=== PATIENT | male | born 1955 | race Caucasian/White ===

== ENCOUNTER 2016-07-31 15:58 | Inpatient (IN) | payer SELFPAY ==
--- NOTE | 2016-07-31 16:34 | EDPHY ---
H & P Stated Complaint: coughing up blood, blood streaks in stool, no diarrhea; 9kg loss in 3 wk Time Seen by Provider: 07/31/16 16:34 - Personal History Current Tetanus/Diphtheria Vaccine: Yes Current Tetanus Diphtheria and Acellular Pertussis (TDAP): Yes - Medical/Surgical History Hx Asthma: No Hx Chronic Respiratory Disease: No Hx Diabetes: No Hx Cardiac Disease: No Hx Renal Disease: No Hx Cirrhosis: No Hx Alcoholism: No Hx HIV/AIDS: No Hx Splenectomy or Spleen Trauma: No Other PMH: denies - Social History Smoking Status: Heavy smoker Constitutional: Initial Vital Signs Temperature (C) 37.5 C 07/31/16 16:01 Heart Rate 98 07/31/16 16:01 Respiratory Rate 16 07/31/16 16:01 Blood Pressure 126/91 H 07/31/16 16:01 O2 Sat (%) 95 07/31/16 16:01 O2 Delivery Mode Room Air Allergies/Adverse Reactions: gypsum Allergy (Uncoded 07/31/16 16:09) sheet rock dust Allergy (Uncoded 07/31/16 16:07) Home Medications: Medication Instructions Recorded EPIPEN 07/31/16 Medical Decision Making ED Course/Re-evaluation: CHIEF COMPLAINT: Hemoptysis, blood in stool HISTORY OF PRESENT ILLNESS: This patient is a 60 year old male who presents to the Emergency Department complaining of 5-6 episodes of acute hemoptysis today. He reports that he has been recovering from bronchitis and is on his second course of antibiotics and has been coughing frequently over the past week. He also complains of one episode of blood in his stool which he describes as a single streak of bright red blood. He has no additional complaints. Denies fever or chills or chest pain. No additional pertinent medical history. He has increased alcohol intake significantly since his at the end of June. REVIEW OF SYSTEMS: A 10 point review of systems was performed and is negative with the exception of the elements mentioned in the history of present illness. PHYSICAL EXAM: HR 98, BP 126/91, O2 Sat 95%, RR 16. Temp noted General Appearance: Alert, well hydrated, appropriate, and non-toxic appearing. Head: Atraumatic without scalp tenderness or obvious injury Eyes: Pupils equal, round, reactive to light and accommodation, EOMI, no trauma , no injection. Ears: Clear bilaterally, no perforation, normal landmarks Nose: Atraumatic, no rhinorrhea, clear. Throat: Pharyngeal erythema, no exudates, no lesions, normal tonsils, mucus membranes moist. Neck: Supple, 2+ carotid upstroke, nontender, no lymphadenopathy. Respiratory: No retractions, no distress, no wheezes, and no accessory muscle use. Lungs are clear to auscultation bilaterally. Cardiovascular: Regular rate and rhythm, no murmurs, rubs, or gallops. Bilateral carotid, radial, dorsalis pedis, and posterior tibial pulses intact. Good capillary refill all extremities. Gastrointestinal: Abdomen is soft, nontender, non-distended, no masses, no rebound, no guarding, no peritoneal signs. Musculoskeletal: Normal active ROM of all extremities, atraumatic. Neurological: Alert, appropriate, and interactive. The patient has normal DTRs and non-focal cranial nerves, motor, sensory, and cerebellar exam. Skin: No rashes, good turgor, no nodules on palpation. Past medical history: Denies. Past surgical history: Denies. Family history: Non-contributory. Social history: in June of this year. Smokes 1 pack per day. Drinks socially with marked increase to alcohol use since the of his . DIAGNOSTICS/PROCEDURES/CRITICAL CARE TIME: IMAGING: Study: CTA of the chest Indication: Hemoptysis, smoker Results: CT angiogram of the chest was obtained. The results of the study are: 1. No evidence of pulmonary embolic disease. 2. Large right pneumothorax, with associated emphysematous changes, bronchial dilatation, and subpleural honeycombing. The study was read by the radiologist, Dr. Branden Soto. I viewed the images myself on the PACS system. Study: Chest x-ray Indication: Post-chest tube placement Results: Chest x-ray was obtained. The results of the study are: Minimal if any residual right pneumothorax following placement of small bore thoracotomy tube. The study was read by the radiologist, Dr. Branden Soto. I viewed the images myself on the PACS system. DIFFERENTIAL DIAGNOSIS: Differential diagnosis for the patient's hemoptysis includes but is not limited to: pulmonary embolism, exacerbation of bronchitis, pneumothorax, or tumor. MEDICAL DECISION MAKING: This patient is a normally healthy 60 year old male who presents complaining of acute hemoptysis today. He complains of one episode of bright red blood in his stool that sounds more hemorrhagic than anything else. He is recovering from bronchitis and is on his second dose of antibiotics. On exam, his lungs are clear to auscultation. His abdominal exam is benign. He does smoke approximately 1 pack of cigarettes daily; given this, will proceed with labs and CTA of the chest to rule out PE or tumor as etiologic factor for the patient 's hemoptysis. The patient also reports increased alcohol use since his 's , so will proceed with liver enzymes. Labs obtained: Hematocrit within normal range at 49.1. Liver enzymes within normal range. 1813: Imaging results reported to me by Dr. Branden Soto. I discussed these results with the patient. Will consult with general surgery. 1824: Consultation with Dr. Madhavi Nickerson, general surgeon, who will visit the patient here in the ED and place a chest tube. Will proceed with chest x-ray post-chest tube placement. The patient will be admitted to Dr. Nickerson. - Data Points Laboratory Results: Laboratory Results 07/31/16 16:40 07/31/16 16:40 07/31/16 07/31/16 07/31/16 16:40 16:40 16:40 WBC 9.64 10^3/uL H 10^3/uL (3.80-9.50) RBC 5.02 10^6/uL 10^6/uL (4.40-6.38) Hgb 17.6 g/dL H g/dL (13.7-17.5) Hct 49.1 % % (40.0-51.0) MCV 97.8 fL fL (81.5-99.8) MCH 35.1 pg H pg (27.9-34.1) MCHC 35.8 g/dL g/dL (32.4-36.7) RDW 12.8 % % (11.5-15.2) Plt Count 223 10^3/uL 10^3/uL (150-400) MPV 9.7 fL fL (8.7-11.7) Neut % (Auto) 65.0 % % (39.3-74.2) Lymph % (Auto) 21.2 % % (15.0-45.0) [place] % (Auto) 12.1 % % (4.5-13.0) Eos % (Auto) 0.9 % % (0.6-7.6) Baso % (Auto) 0.5 % % (0.3-1.7) Nucleat RBC Rel Count 0.0 % % (0.0-0.2) Absolute Neuts (auto) 6.26 10^3/uL 10^3/uL (1.70-6.50) Absolute Lymphs (auto) 2.04 10^3/uL 10^3/uL (1.00-3.00) Absolute Monos (auto) 1.17 10^3/uL H 10^3/uL (0.30-0.80) Absolute Eos (auto) 0.09 10^3/uL 10^3/uL (0.03-0.40) Absolute Basos (auto) 0.05 10^3/uL 10^3/uL (0.02-0.10) Absolute Nucleated RBC 0.00 10^3/uL 10^3/uL (0-0.01) Immature Gran % 0.3 % % (0.0-1.1) Immature Gran # 0.03 10^3/uL 10^3/uL (0.00-0.10) PT 11.9 SEC L SEC (12.0-15.0) INR 0.89 (0.83-1.16) APTT 23.6 SEC SEC (23.0-38.0) Sodium 135 mEq/L mEq/L (134-144) Potassium 4.3 mEq/L mEq/L (3.5-5.2) Chloride 100 mEq/L mEq/L (97-110) Carbon Dioxide 21 mEq/l L mEq/l (22-31) Anion Gap 14 mEq/L mEq/L (8-16) BUN 16 mg/dL mg/dL (7-23) Creatinine 0.5 mg/dL L mg/dL (0.7-1.3) Estimated GFR > 60 Glucose 77 mg/dL mg/dL (70-100) Calcium 9.9 mg/dL mg/dL (8.5-10.4) Total Bilirubin 0.7 mg/dL mg/dL (0.1-1.4) Conjugated Bilirubin 0.4 mg/dL mg/dL (0.0-0.5) Unconjugated Bilirubin 0.3 mg/dL mg/dL (0.0-1.1) AST 47 IU/L IU/L (17-59) ALT 44 IU/L IU/L (21-72) Alkaline Phosphatase 67 IU/L IU/L (38-126) Total Protein 7.5 g/dL g/dL (6.3-8.2) Albumin 4.3 g/dL g/dL (3.5-5.0) Lipase 229.0 IU/L IU/L (23-300) Departure - Departure Disposition: [facility] Inpatient Acute Clinical Impression: Hemoptysis Pneumothorax Qualifiers: Pneumothorax type: spontaneous, primary Qualified Code(s): J93.11 - Primary spontaneous pneumothorax Condition: Fair Report Scribed for: Chip Leavitt Report Scribed by: Emelia Canchola Date of Report: 07/31/16 Time of Report: 16:35
[2016-07-31 16:57] LABS: % IMMATURE GRANULYOCYTES 0.3 % (0.0-1.1); ABSOLUTE IMMATURE GRANULOCYTES 0.03 10^3/uL (0.00-0.10); ADD DIFF? NO; ADD MORPH? NO; ADD SCAN? NO; ATYPICAL LYMPHOCYTE FLAG 20 (0-99); FRAGMENT RBC FLAG 20 (0-99); HEMATOCRIT 49.1 % (40.0-51.0); HEMOGLOBIN 17.6 g/dL (13.7-17.5); LEFT SHIFT FLG 0 (0-99); LIPEMIA HEMOLYSIS FLAG 90 (0-99); MEAN CELL HEMOGLOBIN 35.1 pg (27.9-34.1); MEAN CELL HEMOGLOBIN CONCENTR. 35.8 g/dL (32.4-36.7); MEAN CELL VOLUME 97.8 fL (81.5-99.8); MEAN PLATELET VOLUME 9.7 fL (8.7-11.7); PLATELET CLUMPS FLAG 10 (0-99); PLATELET COUNT 223 10^3/uL (150-400); RED BLOOD CELL COUNT 5.02 10^6/uL (4.40-6.38); RED CELL DISTRIBUTION WIDTH 12.8 % (11.5-15.2)
[2016-07-31 17:14] LABS: ANION GAP 14 mEq/L (8-16); CALCIUM 9.9 mg/dL (8.5-10.4); CARBON DIOXIDE 21 mEq/l (22-31); CHLORIDE 100 mEq/L (97-110); CREATININE 0.5 mg/dL (0.7-1.3); GLOMERULAR FILTRATION RATE > 60; GLUCOSE 77 mg/dL (70-100); POTASSIUM 4.3 mEq/L (3.5-5.2); SODIUM 135 mEq/L (134-144)
[2016-07-31 17:23] LABS: INR 0.89 (0.83-1.16); PROTIME(PATIENT) 11.9 SEC (12.0-15.0)
[2016-07-31 17:24] LABS: APTT 23.6 SEC (23.0-38.0)
[2016-07-31 17:34] LABS: ALANINE AMINOTRANSFERASE 44 IU/L (21-72); ALBUMIN 4.3 g/dL (3.5-5.0); ALKALINE PHOSPHATASE 67 IU/L (38-126); ASPARTATE AMINOTRANSFERASE 47 IU/L (17-59); BILIRUBIN,TOTAL 0.7 mg/dL (0.1-1.4); BILIRUBIN-CONJUGATED 0.4 mg/dL (0.0-0.5); BILIRUBIN-UNCONJUGATED 0.3 mg/dL (0.0-1.1); TOTAL PROTEIN 7.5 g/dL (6.3-8.2)
[2016-07-31] MEDS ORDERED: IOPAMIDOL (ISOVUE 370) 100 ML BTL IV ONE (17:40)
[2016-07-31] MEDS ORDERED: IBUPROFEN 600 MG TAB PO PRN (19:04)
[2016-07-31] MEDS ORDERED: ACETAMINOPHEN 325 MG TAB PO PRN (19:04)
--- NOTE | 2016-07-31 20:55 | GHP ---
[f rep st] HISTORY AND PHYSICAL DATE OF ADMISSION: 07/31/2016 CHIEF COMPLAINT: Right-sided pneumothorax. HISTORY OF PRESENT ILLNESS: The patient is a 60-year-old man who presented to the ER with chief com plaints of hemoptysis, streaks of blood in his stool and weight loss. His about 4 weeks a go and he lost 18 pounds. He has gained 10 of those pounds back. He presented to the emergency candida m due to coughing up blood. A chest CTA was performed, which showed a large right-sided pneumothora x. He denies pain or shortness of breath. He has been recovering from bronchitis. PAST MEDICAL HISTORY: None. SOCIAL HISTORY: He smokes about a pack a day for 40 years. He does not normally drink alcohol heav precious, but has since his 's . He has not had withdrawal. 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 FAMILY HISTORY: Noncontributory. REVIEW OF SYSTEMS: A 10-point review of systems negative except per HPI. MEDICATIONS: None. ALLERGIES: Sheetrock dust. PHYSICAL EXAMINATION: VITAL SIGNS: 37.5, 98, 126/91, 16, 95%. GENERAL: Pleasant, well-nourished, well-groomed man sitting up in bed. HEENT: Normocephalic. No gross hearing deficits. Mucous mem branes moist. Pupils equal and round. No scleral icterus. LUNGS: Decreased on right side. Left side clear. CARDIAC: Regular rate. No peripheral edema. ABDOMEN: Soft and nontender. SKIN: Wa rm and dry. RESULTS REVIEWED: I personally reviewed the CTA with the patient, which shows a large right pneumot horax. IMPRESSION/PLAN: The patient is a 60-year-old with a pneumothorax. I will place a chest tube. He understands he will be in the hospital for this as this resolves. We discussed the risks and benefi ts. He signed the informed consent. /[id number]/MODL
--- NOTE | 2016-07-31 21:15 | GPN ---
[f rep st] PROCEDURE NOTE DATE OF PROCEDURE: 07/31/2016 ANESTHESIA: None. PREOPERATIVE DIAGNOSIS: Right pneumothorax. POSTOPERATIVE DIAGNOSIS: Right pneumothorax. PROCEDURE PERFORMED: Right chest tube thoracostomy. ESTIMATED BLOOD LOSS: 1 cc. FINDINGS: Resolution of pneumothorax. INDICATIONS: The patient is a 60-year-old man with a large right-sided pneumothorax. DESCRIPTION OF PROCEDURE: The patient was in the emergency room. His right arm was above his chest . I prepped his lateral chest and draped in it the usual sterile fashion. I infiltrated the area w ith 5 cc of 1% lidocaine. I made a small incision over the ribs. I placed a Pneumo cath catheter d irected apically. I connected it to the Pleur-Evac. Initially there was an air leak which resolved . This was sutured into place with 2-0 silk. A dressing was applied. A chest x-ray was obtained p ost procedure, which showed near resolution of the pneumothorax. He tolerated the procedure well. /[id number]/MODL
[2016-08-01] MEDS: AMOXICILLIN/CLAVULANATE POT 875/125 MG TAB PO SCH ×3 (00:19→18:51)
--- NOTE | 2016-08-01 14:21 | SOAPPROG ---
SOAP Progress Note Assessment/Plan: Assessment: 60 yo M with R pneumothorax s/p pneumocath placement CXR this am with small apical ptx air leak Keep chest tube today, will reevaluate tomorrow. Likely chest tube out If recurrent pneumothorax, will need chest CT to evaluate blebs May not shower while chest tube in place Seen with Dr. Schmidt S: wants to take a shower. Feeling well. O: sitting upright in chair, comfortable, NAD No increased wob, CTAB RRR R pneumocath dressing CDI. Minimal serosanguinous fluid. + air leak Plan: 08/01/16 14:18 Objective: Vital Signs Temp Pulse Resp BP Pulse Ox 36.9 C 75 16 134/87 H 93 08/01/16 07:51 08/01/16 07:51 08/01/16 07:51 08/01/16 07:51 08/01/16 07:51 07/31/16 08/01/16 08/02/16 05:59 05:59 05:59 Intake Total 450 Balance 450 PT 11.9 SEC (12.0-15.0) L 07/31/16 16:40 INR 0.89 (0.83-1.16) 07/31/16 16:40 ICD10 Worksheet Patient Problems: Problems Problem Status Onset Hemoptysis Acute Pneumothorax Acute
[2016-08-02] MEDS: AMOXICILLIN/CLAVULANATE POT 875/125 MG TAB PO SCH (08:13)
[2016-08-02 11:36] VITALS: BP 121/86; PULSE 74; RESP 16; TEMP 98.5; O2SAT 95
--- NOTE | 2016-08-02 19:04 | SOAPPROG ---
SOAP Progress Note Assessment/Plan: Assessment: HD # 3 for r pneumothorax Chest x ray stable Removed chest tube dc home. F/U dr eason in 1 week S: Feeling well. Eager to go CTAB Chest tube removed without difficulty Regular rate Plan: 08/02/16 19:03 Objective: Vital Signs Temp Pulse Resp BP Pulse Ox 36.9 C 74 16 121/86 H 95 08/02/16 11:35 08/02/16 11:35 08/02/16 11:35 08/02/16 11:35 08/02/16 11:35 08/01/16 08/02/16 08/03/16 05:59 05:59 05:59 Intake Total 450 300 Output Total 425 Balance 450 -125 PT 11.9 SEC (12.0-15.0) L 07/31/16 16:40 INR 0.89 (0.83-1.16) 07/31/16 16:40 ICD10 Worksheet Patient Problems: Problems Problem Status Onset Hemoptysis Acute Pneumothorax Acute
== END 2016-08-02 14:39 | disposition home or self-care (01) | DRG 201 ==
LOC: OBSVTOIN 18:06 → F2W 20:27
PROVIDERS: ADMIT Surgery; ATTEND Surgery
PROC: 0W9930Z Drainage of Right Pleural Cavity with Drainage Device, Percutaneous Approach (ICD-10-PCS; principal; 2016-07-31)
DX: J93.11 Primary spontaneous pneumothorax (principal); F17.210 Nicotine dependence, cigarettes, uncomplicated; J40 Bronchitis, not specified as acute or chronic
CPT/HCPCS: Q9967

== ENCOUNTER 2017-05-11 18:52 | Inpatient (IN) | payer MEDICAID, OTHER ==
--- NOTE | 2017-05-11 19:03 | EDPHY ---
H & P Stated Complaint: dx pna yesterday/sob/hypoxia Time Seen by Provider: 05/11/17 19:03 HPI/ROS: CHIEF COMPLAINT: Severe dyspnea, hypoxemia HISTORY OF PRESENT ILLNESS: The patient presents the ED with severe dyspnea and hypoxemia. The patient tells me he was diagnosed with pneumonia on of this week. He has been on Levaquin since that time. The patient has a past medical history significant for pneumothorax. The patient also reports he is a chronic smoker. The patient reportedly was on 2 rounds of amoxicillin since for presumed bronchitis. The patient takes no other prescription medications. The patient recently has traveled to the [facility] on plane. He denies asymmetric calf pain or swelling. The patient denies any prior history of PE or DVT. REVIEW OF SYSTEMS: A comprehensive 10 point review of systems is otherwise negative aside from elements mentioned in the history of present illness. Source: Patient - Personal History Current Tetanus/Diphtheria Vaccine: Yes - Medical/Surgical History Hx Asthma: No Hx Chronic Respiratory Disease: No Hx Diabetes: No Hx Cardiac Disease: No Hx Renal Disease: No Hx Cirrhosis: No Hx Alcoholism: No Hx HIV/AIDS: No Hx Splenectomy or Spleen Trauma: No Other PMH: denies - Social History Smoking Status: Heavy smoker - Physical Exam Exam: General Appearance: Thin male, mild distress secondary to tachypnea Eyes: Pupils equal and round no pallor or injection ENT, Mouth: Dry mucous membranes Respiratory: Distant breath sounds, scant rhonchi Cardiovascular: Tachycardic Gastrointestinal: Abdomen is soft and nontender, no masses, bowel sounds normal Neurological: A&O, normal motor function, normal sensory exam, normal cranial nerves Skin: Warm and dry, no rashes Musculoskeletal: Neck is supple nontender Extremities: symmetrical, full range of motion Constitutional: Initial Vital Signs Temperature (C) 36.7 C 05/11/17 18:57 Heart Rate 138 H 05/11/17 18:57 Respiratory Rate 27 H 05/11/17 18:57 Blood Pressure 103/76 05/11/17 18:57 O2 Sat (%) 52 L 05/11/17 18:57 O2 Delivery Mode Room Air O2 (L/minute) 15 Allergies/Adverse Reactions: gypsum Allergy (Uncoded 07/31/16 16:09) sheet rock dust Allergy (Uncoded 07/31/16 16:07) Home Medications: Medication Instructions Recorded EPINEPHrine KIT [Epipen Kit] 0.3 mg IM ONCE PRN 07/31/16 levOFLOXACIN 05/11/17 Medical Decision Making - Diagnostics Imaging Results: Imaging Impressions Chest X-Ray 05/11/17 19:04 Impression: Bilateral airspace consolidation which could represent bilateral pneumonia. ED Course/Re-evaluation: The patient presents to the ED with acute hypoxemia from a bilateral pneumonia and associated sepsis with SIRS (leukocytosis, tachycardia and tachypnea). The patient's initial venous lactate is elevated at 2.8. The patient received supplemental oxygen. Chest x-ray confirms bilateral pneumonia. Blood cultures x2 are obtained. The patient had been on Levaquin prior to arrival. The patient will require admission to the hospital in the setting of his severe sepsis. Consultation was made with Dr. Jack Weir from the hospitalist service who will admit the patient. Given the patient's tachycardia and hypoxemia he will be admitted to the intensive care unit. I started the patient on vancomycin and Zosyn. An influenza PCR has been ordered. Re-evaluation at 7:50 pm: BP 101/68. IV fluids infusing. 8:05pm: Arterial blood gas obtained by myself. Repeat lactic acid is 1.6. Venous pH is normal Differential Diagnosis: Differential diagnosis considered includes sepsis, severe sepsis, pneumonia, influenza Critical Care Time: Critical care time exclusive of procedures and exclusive of the PA's time was 45 minutes, performed by myself, Alex Wilkes MD. Patient presents to the ED with severe sepsis and hypoxemia in the setting of a bilateral pneumonia. The patient will require admission to the intensive care unit. He was resuscitated in the emergency department with IV fluids. He was started on vancomycin and Zosyn. Consultation was made with the hospitalist service for admission - Data Points Laboratory Results: Laboratory Results 05/11/17 19:15 05/11/17 19:15 05/11/17 05/11/17 05/11/17 19:23 19:15 19:15 WBC 18.59 10^3/uL H 10^3/uL (3.80-9.50) RBC 5.82 10^6/uL 10^6/uL (4.40-6.38) Hgb 19.1 g/dL H g/dL (13.7-17.5) POC Hgb Hct 53.6 % H % (40.0-51.0) POC Hct MCV 92.1 fL fL (81.5-99.8) MCH 32.8 pg pg (27.9-34.1) MCHC 35.6 g/dL g/dL (32.4-36.7) RDW 12.4 % % (11.5-15.2) Plt Count 262 10^3/uL 10^3/uL (150-400) MPV 9.6 fL fL (8.7-11.7) Neut % (Auto) 87.5 % H % (39.3-74.2) Lymph % (Auto) 4.5 % L % (15.0-45.0) [place] % (Auto) 6.8 % % (4.5-13.0) Eos % (Auto) 0.1 % L % (0.6-7.6) Baso % (Auto) 0.3 % % (0.3-1.7) Nucleat RBC Rel Count 0.0 % % (0.0-0.2) Absolute Neuts (auto) 16.28 10^3/uL H 10^3/uL (1.70-6.50) Absolute Lymphs (auto) 0.84 10^3/uL L 10^3/uL (1.00-3.00) Absolute Monos (auto) 1.26 10^3/uL H 10^3/uL (0.30-0.80) Absolute Eos (auto) 0.01 10^3/uL L 10^3/uL (0.03-0.40) Absolute Basos (auto) 0.06 10^3/uL 10^3/uL (0.02-0.10) Absolute Nucleated RBC 0.00 10^3/uL 10^3/uL (0-0.01) Immature Gran % 0.8 % % (0.0-1.1) Immature Gran # 0.14 10^3/uL H 10^3/uL (0.00-0.10) VBG Lactic Acid POC Sodium Sodium 136 mEq/L mEq/L (134-144) POC Potassium Potassium 4.4 mEq/L mEq/L (3.5-5.2) POC Chloride Chloride 99 mEq/L mEq/L (97-110) Carbon Dioxide 20 mEq/l L mEq/l (22-31) Anion Gap 17 mEq/L H mEq/L (8-16) POC BUN BUN 12 mg/dL mg/dL (7-23) Creatinine 0.6 mg/dL L mg/dL (0.7-1.3) POC Creatinine Estimated GFR > 60 Glucose 162 mg/dL H mg/dL (70-100) POC Glucose Calcium 8.7 mg/dL mg/dL (8.5-10.4) Nasal Influenza A PCR NEGATIVE FOR FLU A (NEGATIVE) Nasal Influenza B PCR NEGATIVE FOR FLU B (NEGATIVE) RSV (PCR) NEGATIVE FOR RSV (NEGATIVE) 05/11/17 05/11/17 19:15 19:11 WBC RBC Hgb POC Hgb 20.4 gm/dL H* gm/dL (13.7-17.5) Hct POC Hct 60 % H % (40-51) MCV MCH MCHC RDW Plt Count MPV Neut % (Auto) Lymph % (Auto) [place] % (Auto) Eos % (Auto) Baso % (Auto) Nucleat RBC Rel Count Absolute Neuts (auto) Absolute Lymphs (auto) Absolute Monos (auto) Absolute Eos (auto) Absolute Basos (auto) Absolute Nucleated RBC Immature Gran % Immature Gran # VBG Lactic Acid 2.8 mmol/L H mmol/L (0.7-2.1) POC Sodium 135 mEq/L mEq/L (134-144) Sodium POC Potassium 4.1 mEq/L mEq/L (3.3-5.0) Potassium POC Chloride 98 mEq/L mEq/L (97-110) Chloride Carbon Dioxide Anion Gap POC BUN 12 mg/dL mg/dL (7-23) BUN Creatinine POC Creatinine 0.5 mg/dL L mg/dL (0.7-1.3) Estimated GFR Glucose POC Glucose 167 mg/dL H mg/dL (70-100) Calcium Nasal Influenza A PCR Nasal Influenza B PCR RSV (PCR) Medications Given: Vancomycin/Sodium Chloride (Vancomycin 1 Gm (Premix)) 250 mls @ 250 mls/hr IV EDNOW ONE PRN Reason: Protocol Stop: 05/11/17 20:39 Last Admin: 05/11/17 20:16 Dose: 250 mls Discontinued Medications Albuterol/Ipratropium (Duoneb) 3 ml IH EDNOW ONE Stop: 05/11/17 19:11 Last Admin: 05/11/17 19:18 Dose: 3 ml Sodium Chloride (Ns) 2,400 mls @ 4,800 mls/hr 30 ml/kg infuse over 30 min ( 2400 ml) IV EDNOW ONE PRN Reason: Protocol Stop: 05/11/17 20:02 Last Admin: 05/11/17 19:41 Dose: 2,400 mls Piperacillin/Tazobactam/Dextrose (Zosyn (Premix)) 100 mls @ 200 mls/hr IV EDNOW ONE PRN Reason: Protocol Stop: 05/11/17 20:09 Last Admin: 05/11/17 20:16 Dose: 100 mls Point of Care Test Results: 05/11/17 19:11 POC Sodium 135 POC Potassium 4.1 POC Chloride 98 POC BUN 12 POC Creatinine 0.5 L POC Glucose 167 H Departure - Departure Disposition: [facility] Inpatient Acute Clinical Impression: Severe sepsis, Pneumonia
[2017-05-11] MEDS ORDERED: IPRATROPIUM/ALBUTEROL 3 ML DEYVIAL IH ONE (19:10)
[2017-05-11 19:22] LABS: PLATELET COUNT 262 10^3/uL (150-400)
[2017-05-11] MEDS ORDERED: NS 2,400 ML IV ONE (19:33)
[2017-05-11] MEDS ORDERED: PIPERACILLIN/TAZO 4.5 GM/DEX 100 ML IV ONE (19:40)
[2017-05-11] MEDS ORDERED: VANCOMYCIN HCL/NORMAL SALINE 250 ML IV ONE (19:40)
[2017-05-11] MEDS ORDERED: ONDANSETRON 4 MG/2 ML VIAL IVP PRN (19:48)
[2017-05-11] MEDS ORDERED: ONDANSETRON DISINTEGRATING 4 MG TAB PO PRN (19:48)
[2017-05-11] MEDS ORDERED: ACETAMINOPHEN 325 MG TAB PO PRN (19:48)
[2017-05-11] MEDS ORDERED: guaiFENesin/CODEINE PHOS 10 ML UDCUP PO PRN (19:52)
[2017-05-11] MEDS ORDERED: BENZONATATE 100 MG CAP PO PRN (19:52)
--- NOTE | 2017-05-11 20:29 | PDGENHP ---
History and Physical - Chief Complaint Acute shortness of breath - History of Present Illness Primary care provider: Dr. Mariia Hoffman HPI: 61-year-old male presenting with acute shortness of breath characterized as significant dyspnea when he attempted to get out of bed on the morning of this presentation, with associated nonproductive cough, generalized fatigue. He reports that he has had similar symptoms for approximately 1 month, of intermittent duration, sometimes feeling well, sometimes feeling worse. Over that interval, the patient has utilized to complete courses of amoxicillin, beginning April 04, and these courses of antibiotics temporarily improved his symptoms. Most recently, the patient was feeling unwell while he was taking amoxicillin, and he went to his primary care provider office 2 days prior to this admission. She performed chest x-ray, diagnosed pneumonia, and initiated him on levofloxacin. He took 2 days of levofloxacin, felt no better, and experienced this severe shortness of breath on the morning of this presentation. Over this interval of time, the patient has also reduced his intake of alcohol, but has increased his consumption of cigarettes, having to stop cigarettes 2 days prior to this presentation secondary to his aforementioned shortness of breath symptoms. History Information - Allergies/Home Medication List Allergies/Adverse Reactions: gypsum Allergy (Uncoded 07/31/16 16:09) sheet rock dust Allergy (Uncoded 07/31/16 16:07) Home Medications: EPINEPHrine KIT [Epipen Kit] 0.3 mg IM ONCE PRN 07/31/16 [Last Taken Unknown] levOFLOXACIN 05/11/17 [Last Taken Unknown] I have personally reviewed and updated: family history, medical history, social history, surgical history - Past Medical History Additional medical history: Pneumothorax in July of 2016. Osteoarthritis. 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 Review of Systems Review of Systems: ROS: 10pt was reviewed & negative except for what was stated in HPI & below Constitutional: Reports: weakness Respiratory: Reports: cough, shortness of breath Physical Exam Physical Exam: Temp Pulse Resp BP Pulse Ox 36.7 C 138 H 27 H 103/76 90 L 05/11/17 18:57 05/11/17 18:57 05/11/17 18:57 05/11/17 18:57 05/11/17 19:00 Constitutional: no apparent distress, appears nourished, not in pain, uncomfortable Eyes: PERRL, anicteric sclera, EOMI Ears, Nose, Mouth, Throat: moist mucous membranes, hearing normal, ears appear normal, no oral mucosal ulcers Cardiovascular: tachycardia, No systolic murmur, No irregularly irregular, No edema Respiratory: respiratory distress (Visibly tachypneic), rhonchi (On inspiration bilaterally to the mid posterior segments), No expiratory wheeze, No bronchial breath sounds Gastrointestinal: normoactive bowel sounds, soft, non-tender abdomen, no palpable masses Skin: other (Healed scar over left cheek), No rash Neurologic: AAOx3, sensation intact bilaterally, No weakness Psychiatric: interacting appropriately, not anxious, not encephalopathic, thought process linear Lab Data & Imaging Review 05/11/17 19:15 05/11/17 19:15 WBC 18.59 10^3/uL (3.80-9.50) H 05/11/17 19:15 RBC 5.82 10^6/uL (4.40-6.38) 05/11/17 19:15 Hgb 19.1 g/dL (13.7-17.5) H 05/11/17 19:15 POC Hgb 20.4 gm/dL (13.7-17.5) H* 05/11/17 19:11 Hct 53.6 % (40.0-51.0) H 05/11/17 19:15 POC Hct 60 % (40-51) H 05/11/17 19:11 MCV 92.1 fL (81.5-99.8) 05/11/17 19:15 MCH 32.8 pg (27.9-34.1) 05/11/17 19:15 MCHC 35.6 g/dL (32.4-36.7) 05/11/17 19:15 RDW 12.4 % (11.5-15.2) 05/11/17 19:15 Plt Count 262 10^3/uL (150-400) 05/11/17 19:15 MPV 9.6 fL (8.7-11.7) 05/11/17 19:15 Neut % (Auto) 87.5 % (39.3-74.2) H 05/11/17 19:15 Lymph % (Auto) 4.5 % (15.0-45.0) L 05/11/17 19:15 Cottle % (Auto) 6.8 % (4.5-13.0) 05/11/17 19:15 Eos % (Auto) 0.1 % (0.6-7.6) L 05/11/17 19:15 Baso % (Auto) 0.3 % (0.3-1.7) 05/11/17 19:15 Nucleat RBC Rel Count 0.0 % (0.0-0.2) 05/11/17 19:15 Absolute Neuts (auto) 16.28 10^3/uL (1.70-6.50) H 05/11/17 19:15 Absolute Lymphs (auto) 0.84 10^3/uL (1.00-3.00) L 05/11/17 19:15 Absolute Monos (auto) 1.26 10^3/uL (0.30-0.80) H 05/11/17 19:15 Absolute Eos (auto) 0.01 10^3/uL (0.03-0.40) L 05/11/17 19:15 Absolute Basos (auto) 0.06 10^3/uL (0.02-0.10) 05/11/17 19:15 Absolute Nucleated RBC 0.00 10^3/uL (0-0.01) 05/11/17 19:15 Immature Gran % 0.8 % (0.0-1.1) 05/11/17 19:15 Immature Gran # 0.14 10^3/uL (0.00-0.10) H 05/11/17 19:15 Puncture Site RIGHT RADIAL 05/11/17 20:00 Patient Temperature 36.5 DEGREES 05/11/17 20:00 pCO2 29 mmHg (34-38) L 05/11/17 20:00 pO2 59 mmHg (65-75) L 05/11/17 20:00 Total CO2 20 mEq/L (23-27) L 05/11/17 20:00 ABG pH 7.43 (7.35-7.45) 05/11/17 20:00 ABG PO2/FiO2 Ratio 66 RATIO 05/11/17 20:00 ABG HCO3 19 mEq/L (22-26) L 05/11/17 20:00 ABG O2 Saturation 89 % (92-95) L 05/11/17 20:00 ABG Base Excess -3.6 mEq/L (-2.5-2.5) L 05/11/17 20:00 ABG Lactic Acid 1.6 mmol/L (0.5-1.6) 05/11/17 20:00 VBG Lactic Acid 2.8 mmol/L (0.7-2.1) H 05/11/17 19:15 Total O2 Concentration 15.0 LITERS 05/11/17 20:00 O2 Concentration % 89 % (0-100) 05/11/17 20:00 POC Sodium 135 mEq/L (134-144) 05/11/17 19:11 Sodium 136 mEq/L (134-144) 05/11/17 19:15 POC Potassium 4.1 mEq/L (3.3-5.0) 05/11/17 19:11 Potassium 4.4 mEq/L (3.5-5.2) 05/11/17 19:15 POC Chloride 98 mEq/L (97-110) 05/11/17 19:11 Chloride 99 mEq/L (97-110) 05/11/17 19:15 Carbon Dioxide 20 mEq/l (22-31) L 05/11/17 19:15 Anion Gap 17 mEq/L (8-16) H 05/11/17 19:15 POC BUN 12 mg/dL (7-23) 05/11/17 19:11 BUN 12 mg/dL (7-23) 05/11/17 19:15 Creatinine 0.6 mg/dL (0.7-1.3) L 05/11/17 19:15 POC Creatinine 0.5 mg/dL (0.7-1.3) L 05/11/17 19:11 Estimated GFR > 60 05/11/17 19:15 Glucose 162 mg/dL (70-100) H 05/11/17 19:15 POC Glucose 167 mg/dL (70-100) H 05/11/17 19:11 Calcium 8.7 mg/dL (8.5-10.4) 05/11/17 19:15 Nasal Influenza A PCR NEGATIVE FOR FLU A (NEGATIVE) 05/11/17 19:23 Nasal Influenza B PCR NEGATIVE FOR FLU B (NEGATIVE) 05/11/17 19:23 RSV (PCR) NEGATIVE FOR RSV (NEGATIVE) 05/11/17 19:23 Visualized and Interpreted Chest x-ray results: Yes Chest X-Ray results: other (Dense bilateral pulmonary infiltrates) Assessment & Plan Assessment: 61-year-old male presenting with severe sepsis in the setting of bilateral pneumonia and acute hypoxic respiratory failure Plan: 1. Severe sepsis. Present on admission, evidenced by ICD S-2 criteria with lactic acidosis and severe acute lung injury representing autonomic dysregulation and end-organ failure in the setting of infection, notably pneumonia -blood culture sent -repeat venous lactic sent -monitor leukocytosis -attempt to stabilize him from a respiratory standpoint as outlined below -empiric IV antibiotic -empiric IV fluids -requiring step-down unit level of care 2. Bilateral pneumonia. Present on admission, suspect that this is a post viral bacterial pneumonia, potentially MRSA or Pseudomonas given the time course over the span of 1 month, with intervals where the patient symptomatically improved, then worsened -send sputum culture if able -send urine strep and Legionella -discussed with Dr. Cruz Wilkes in the emergency department, we both agree that Vanco and Zosyn are appropriate broad-spectrum coverage for this situation, will also add azithromycin for potential atypical organisms -flu PCR negative -supportive care with antitussive 3. Acute hypoxic respiratory failure. Evidenced by severe acute lung injury by WH0 criteria (<100), with a P:F ratio of 87, a presenting room air saturation of 52% with objective tachypnea, labored breathing, respiratory distress, stabilized on 15 L face mask oxygen -discussed with patient, he is amenable to intubation if required for survival -will remain on 15 L face mask oxygen at this time, transfer to step-down unit, discussed with step-down unit charge nurse, will notify hospitalist if urgent intubation is required to night -ABG does not demonstrate any hypercapnia, continue on duo nebs for suspected underlying undiagnosed COPD but do not initiate steroids as there does not appear to be a reactive airway component at this time -suspect his baseline saturation is around 87-88%, that should be goal o/n -repeat chest x-ray in a.m. to monitor for progressive worsening with IV fluids -once condition has resolved, would recommend outpatient CT to ensure there is no underlying malignancy or interstitial lung disease component Diet. Regular Prophylaxis. High risk patient, Lovenox 40 Code. Full, confirmed with patient, his brother is his MD POA Disposition. Anticipated discharge uncertain this time, anticipated length stay is greater than 48 hr warranting inpatient admission for reasonable medical necessity including severe sepsis, pneumonia, acute hypoxic respiratory failure. 40 min of critical care time spent with the patient, at bedside, coordinating care with the charge nurse in the ICU, Dr. Cruz Wilkes in the emergency department, patient remains critically ill for the issues outlined above.
[2017-05-11] MEDS: AZITHROMYCIN IV 500 MG in D5W 250 ML IV SCH (20:59)
[2017-05-11] MEDS: guaiFENesin 600 MG TAB.ER PO SCH (21:22)
[2017-05-11] MEDS: IPRATROPIUM/ALBUTEROL 3 ML DEYVIAL IH SCH (21:33)
--- NOTE | 2017-05-11 21:41 | CPEKG ---
Heart Rate: 113 RR Interval: 531 P-R Interval: 136 QRSD Interval: 116 QT Interval: 364 QTC Interval: 500 P [place]: 55 QRS [place]: 46 T Wave [place]: 28 EKG Severity - ABNORMAL ECG - EKG Impression: SINUS TACHYCARDIA EKG Impression: BIATRIAL ABNORMALITIES EKG Impression: RIGHT BUNDLE BRANCH BLOCK Electronically Signed By: Monsetr Ramirez 12-May-2017 07:30:03
[2017-05-12] MEDS: PIPERACILLIN/TAZO 4.5 GM/DEX 100 ML IV SCH ×4 (01:14→20:08)
--- NOTE | 2017-05-12 02:02 | PDMN ---
Medical Necessity Medical necessity: C/M review: Patient meets INPT criteria under MCG Pneumonit , community acquired: Acute and persistent severe sepsis in the setting of bilateral pneumonia present on admission - suspect post viral bacterial pneumonia, , acute hypoxic respiratory failure, lactic acidosis, acute lung injury representing autonomic dysregulation and end organ failure, 52% RA sat, p :F ratio of 87, WBC 18.59, VBG lactic acid 2.8, requiring ongoing IV Zosyn Q 6 hrs., IV Azithramycin Q 24 hrs., IV Vancomycin Q 12 hrs., IV fluids, Duonebs QID , cardiac monitoring, pulse oximetry, O2 15L/min non-rebreather mask, comorbid beginning 04/04/2017 significant dyspnea, nonproductive cough, fatigue, treated with courses of oral amoxicillin, diagnosed with pneumonia two days prior to this admission treated with oral levofloxacin, cigarette smoking until two days prior to this admission, history of pneumothorax treated with right sided chest tube placement july 2016, intermittent bronchitis, failed outpt therapy. MD anticipates > 2 MN LOS for ongoing med nec for eval and TX of above.
[2017-05-12 04:12] LABS: PLATELET COUNT 211 10^3/uL (150-400)
[2017-05-12] MEDS: IPRATROPIUM/ALBUTEROL 3 ML DEYVIAL IH SCH ×4 (05:06→20:12)
[2017-05-12] MEDS: NS 1,000 ML IV SCH ×2 (05:16→13:38)
[2017-05-12] MEDS ORDERED: LORazepam 2 MG/ML INJ ONE (05:25)
[2017-05-12] MEDS: LORazepam 2 MG/ML INJ IVP PRN ×4 (05:37→22:02)
--- NOTE | 2017-05-12 05:57 | HOSPPROG ---
Hospitalist Progress Note Assessment/Plan: Hospitalist Night Float Note Paged by RN. notified patient with increasing oxygen requirements. Placed on bipap. Arrived to bedside. Patient resting comfortably but noting a little bit of anxiety with bipap mask. ABG, CXR ordered for this AM. Plan - continue bipap. abx. verified with patient COR status, FULL but does not want prolonged life support if condition worsens. ativan prn for anxiety/air hunger. Objective: Vital Signs Temp Pulse Resp BP Pulse Ox 37 C 115 H 31 H 114/79 94 05/12/17 04:00 05/12/17 05:07 05/12/17 05:07 05/12/17 04:00 05/12/17 05:07 Laboratory Results 05/12/17 03:56 05/12/17 03:56 05/10/17 05/11/17 05/12/17 05:59 05:59 05:59 Intake Total 5149 Output Total 650 Balance 4499 ICD10 Worksheet Patient Problems: Problems Problem Status Onset Pneumonia Acute Severe sepsis Acute Hemoptysis Acute Pneumothorax Acute
[2017-05-12] MEDS: IBUPROFEN 600 MG TAB PO PRN ×2 (08:07→14:57)
[2017-05-12] MEDS: guaiFENesin 600 MG TAB.ER PO SCH ×2 (08:07→23:24)
[2017-05-12] MEDS: ENOXAPARIN 40 MG/0.4 ML SYR SC SCH (08:08)
[2017-05-12] MEDS: VANCOMYCIN 1.25 GM in D5W 250 ML IV SCH ×2 (08:08→20:47)
[2017-05-12] MEDS: methylPREDNISolone SOD SUCC 125 MG/2 ML VIAL IVP SCH (08:55)
[2017-05-12] MEDS: ASPIRIN EC 325 MG TAB PO SCH (09:35)
--- NOTE | 2017-05-12 09:54 | CPEKG ---
Heart Rate: 106 RR Interval: 566 P-R Interval: 136 QRSD Interval: 112 QT Interval: 356 QTC Interval: 473 P [place]: 55 QRS [place]: 19 T Wave [place]: 27 EKG Severity - ABNORMAL ECG - EKG Impression: SINUS TACHYCARDIA EKG Impression: NELLIE, CONSIDER BIATRIAL ABNORMALITIES EKG Impression: INCOMPLETE RIGHT BUNDLE BRANCH BLOCK EKG Impression: LEFT VENTRICULAR HYPERTROPHY EKG Impression: CONSIDER ANTERIOR INFARCT Electronically Signed By: Monster Ramirez 12-May-2017 15:28:16
--- NOTE | 2017-05-12 11:05 | ECHO ---
[email or web address] [address] [address] Main: [phone] Fax: [email or web address] Echocardiogram Name: TREASURE LÓPEZ MR#: [id number] Study Date: 05/12/2017 Study Time: 10:05 AM Date of : 1955 Age: 61 year(s) Height: 193 cm (76 in.) Weight: 77.11 kg (170 lb.) BSA: 2.07 m2 Gender: Male Examination: Echo Indication: Troponin bump Image Quality: Contrast: Requested by: Erna Shaffer BP: 112 mmHg/75 mmHg Heart Rate: Rhythm: Indication: Troponin bump Procedure Staff Oil Burner Servicer And Installer: Evelyn Sherman Reading Physician: Cynthia Ag Requesting Provider: Conclusions: Normal size left ventricle. Borderline concentric LV hypertrophy. Normal global systolic LV function. The ejection fraction is estimated to be 70-75 %. No regional wall motion abnormality. Mildly to moderately dilated right ventricle. Normal RV function. Mild tricuspid regurgitation is present. The pulmonary artery pressure is mildly increased. RVSP is 49mmHG.. There is no previous echocardiogram for comparison. Measurements: Chambers Valvular Assessment AV/MV Valvular Assessment TV/PV Normal Normal Normal Name Value Range Name Value Range Name Value Range Ao Tammy (MM): 3.5 cm (2.2 cm-3.7 AV Vmax: 1.09 m/s (1 m/s-1.7 TR Vmax: 3.30 mm/s ( - ) cm) m/s) TR PGmax: 44 mmHg ( - ) IVSd (2D): 1.0 cm (0.6 cm-1.1 AV maxP mmHg ( - ) syst. PAP: 49 mmHg ( - ) cm) MV E Vmax: 0.55 m/s ( - ) LVDd (2D): 4.8 cm (4.2 cm-5.9 MV A Vmax: 0.98 m/s ( - ) cm) MV E/A: 0.56 ( - ) LVDs (2D): 3.3 cm (2.1 cm-4 cm) LVPWd (2D): 0.9 cm (0.6 cm-1 cm) LVEF (2D): 57 (>=54 %) EF Range: 70-75 % Continued Measurements: Patient: TREASURE LÓPEZ Study Date: 05/12/2017 Page 1 of 2 10:05 AM Chambers Valvular Assessment AV/MV Valvular Assessment TV/PV Name Value Name Value Name Value LADs: 3.1 cm MV E/E' Septal: 9.30 CVP (est.): 5 mmHg LADs Lon.3 cm MV E/E' Lateral: 8.90 LA Area: 15.9 cm2 Findings: Left Ventricle: Normal size left ventricle. Borderline concentric LV hypertrophy. Normal global systolic LV function. The ejection fraction is estimated to be 70-75 %. No regional wall motion abnormality. Right Ventricle: Mildly to moderately dilated right ventricle. Normal RV function. Left Atrium: The left atrium is normal in size. Right Atrium: The right atrium is normal in size. Mitral Valve: The mitral valve is normal in appearance and function. Trivial mitral valve regurgitation. Aortic Valve: The aortic valve is normal in appearance and function. Tricuspid Valve: The tricuspid valve is normal in appearance and function. Mild tricuspid regurgitation is present. The pulmonary artery pressure is mildly increased. RVSP is 49mmHG.. Pulmonic Valve: Pulmonary valve not well visualized. Aorta: The aorta is normal. Pericardium: No pericardial effusion. (No Signature Object) Patient: TREASURE LÓPEZ Study Date: 05/12/2017 Page 2 of 2 10:05 AM [id number]
--- NOTE | 2017-05-12 14:20 | GCON ---
[f rep st] CONSULTATION PULMONARY CRITICAL CARE CONSULT DATE OF CONSULTATION: 05/12/2017 HISTORY OF PRESENT ILLNESS: This patient is a 61-year-old male, without much past medical history, w ho presented to the emergency department after failing outpatient antibiotics. He had been having a cough productive of discolored sputum without hemoptysis over the last several weeks, and was given A ugmentin initially, and then prescribed Levaquin on the day of admission. However, he continued to h ave significant shortness of breath, and arrived in the emergency department with substantial hypoxem ia. He was placed on high-flow cannula and eventually required a trial of BiPAP for refractory hypox emia. A chest x-ray showed diffuse bilateral infiltrates. His white count was markedly elevated, an d he was thought to have community-acquired pneumonia. He was subsequently treated with Zosyn, vanco mycin, and Zithromax by the hospitalist team, for concerns over a postviral pneumonia in a patient wh o is at some high risk for decompensation. He does use inhalers on occasion, but rarely, and does no t have a known diagnosis of COPD or interstitial lung disease, though there were honeycomb changes on a previous CT scan in July of this year. He did report fevers, but no sweats or chills, and no jermaine st pain. PAST MEDICAL HISTORY: Includes: 1. Spontaneous pneumothorax in July of 2016. He was hospitalized at [facility] for that, galindo d a chest tube placed, but it was a fairly unremarkable hospital stay. 2. He may have COPD as described above. 3. There was evidence of mild interstitial lung disease on a CT angiogram at that admission. PAST SURGICAL HISTORY: Includes chest tube. SOCIAL HISTORY: He has at least a 40 pack-year smoking history. Drinks some alcohol, quantities are not clear at this time. No IV drug use. 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 FAMILY HISTORY: Noncontributory at this time. CURRENT MEDICATIONS: Include Tylenol, Ventolin, DuoNeb, aspirin, azithromycin, Tessalon, Lovenox, Mu cinex, Motrin, Ativan, Zofran, Zosyn, vancomycin. PHYSICAL EXAM: VITAL SIGNS: He has been afebrile during his admission, but his blood pressure is 11 6/82, heart rate of 114, sinus tachycardia, respirations 28, oxygen saturation was 86% on Vapotherm a t 100% and 35 L/minutes. GENERAL APPEARANCE: He was awake and alert and in no apparent distress. Not using accessory muscles of breathing, and was able to speak in full sentences. HEENT: Pupils equally round and reactive to light. Nonicteric and noninjected. Mucous membranes are moist without erythema or exudate. NECK: Supple, without adenopathy or jugular venous distention. LUNGS: Breath sounds were diminished bila terally, right greater than left, but not a lot of wheezing or rhonchi. HEART: Regular rate and rhy thm without murmurs, rubs, gallops. ABDOMEN: Soft, nontender, nondistended, without hepatosplenomeg shailesh. EXTREMITIES: Showed no clubbing, cyanosis, or edema. SKIN: Warm and dry, without evidence of rash. NEUROLOGIC: Nonfocal, including cranial nerves and deep tendon reflexes. OBJECTIVE DATA: Includes a chest x-ray as described above. His white count is 17.1, was 18.5 on adm ission; hematocrit 46; platelets of 211. Blood gas showing a pH 7.44, pCO2 30, PO2 88, bicarb 21, sa t of 96%. I believe that was on BiPAP. Basic metabolic panel is essentially normal save for serum b icarb of about 20. Troponin was 1.59; the second one was 2.14. An echocardiogram showed normal ejec tion fraction, a slightly elevated PA pressure, but no wall motion abnormalities. Nasal washings wer e negative for flu A and B, as well as RSV. EKG did not show ischemic changes. ASSESSMENT AND PLAN: 1. Severe community-acquired pneumonia requiring BiPAP for assistance. He is getting aggressive ant ibiotics at this time, but I think, given the severity of disease and low risk to use glucocorticoids , that steroids would be a worthwhile addition to his course. My suspicion for a primary cardiac sofie nt or heart failure is quite low, despite his troponins, but I think that he is still very high risk. Will continue to watch him in the intensive care unit, and maintain an oxygen saturation of 90%. I am not worried about CO2 retention in this patient. We should look at sputum cultures, as well as u rinary streptococcal and Legionella antigens. I do not feel procalcitonin would be useful at this ti me. 2. Troponin elevation. I believe this is probably hypoxia mediated, subendocardial disease, and not an acute coronary syndrome. We should continue to follow these. The echocardiogram has already bee n completed, but my suspicion is if we improve his oxygenation that this will get better. 3. History of alcohol. He is not had alcohol withdrawal in the past. I think we will have to watch closely for this. 4. Abnormal CT scan. This is based primarily on the CT scan from last July, when he had a spontane ous pneumothorax. There is evidence of honeycombing there, and it may be related to underlying occup ational exposures, but that has to be worked up as an outpatient. /[id number]/MODL
--- NOTE | 2017-05-12 14:54 | HOSPPROG ---
Hospitalist Progress Note Assessment/Plan: * Pneumonia - community acquired -given severity of illness - currently on Zosyn, IV Vanco, azithromycin -steroids added per Dr Liriano * Severe sepsis due to pneumonia * Acute respiratory failure - due to pneumonia -BIPAP * Troponin elevation - suspect strain due to sepsis rather than primary cardiac event -ischemic eval when more stable * Tobacco dependence * Etoh abuse - no evidence for withdrawal Subjective: SOB Objective: Vital Signs Temp Pulse Resp BP Pulse Ox 36.7 C 107 H 22 H 114/73 91 L 05/12/17 12:00 05/12/17 13:30 05/12/17 13:30 05/12/17 12:00 05/12/17 13:30 Laboratory Results 05/12/17 03:56 05/12/17 03:56 05/11/17 05/12/17 05/13/17 05:59 05:59 05:59 Intake Total 5149 Output Total 650 275 Balance 4499 -275 CXR viewed, my personal interpretation is - severe bilateral pneumonia ECHO - normal EF, no WMA, pulm HTN - Physical Exam Constitutional: no apparent distress, appears nourished, not in pain Cardiovascular: regular rate and rhythym, no murmur, rub, or gallop Respiratory: no respiratory distress, no rales or rhonchi, clear to auscultation Gastrointestinal: normoactive bowel sounds, soft, non-tender abdomen, no palpable masses Skin: no rashes or abrasions, no fluctuance, no induration Neurologic: AAOx3, sensation intact bilaterally Psychiatric: interacting appropriately, not anxious, not encephalopathic, thought process linear ICD10 Worksheet Patient Problems: Problems Problem Status Onset Pneumonia Acute Severe sepsis Acute Hemoptysis Acute Pneumothorax Acute
--- NOTE | 2017-05-12 16:52 | ASMTCMCOM ---
CM Note CM Note Notes: 61 year old male admitted for SOB, Bilat PNA, Sepsis, Hypoxic respiratory failure. Patient has a hx of heavy ETOH, Smoking and THC. 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 CM to follow-may not have discharge needs. Date Signed: 05/12/2017 04:51 PM Electronically Signed By:Johnna Morales LCSW
[2017-05-12] MEDS ORDERED: ALBUTEROL 3 ML DEYVIAL ONE (19:16)
[2017-05-12] MEDS: AZITHROMYCIN IV 500 MG in D5W 250 ML IV SCH (23:23)
[2017-05-13] MEDS: LORazepam 2 MG/ML INJ IVP PRN (00:32)
[2017-05-13] MEDS: PIPERACILLIN/TAZO 4.5 GM/DEX 100 ML IV SCH ×4 (02:15→21:17)
[2017-05-13] MEDS ORDERED: PROPOFOL/EMULSION 1,000 MG/100 ML BOTTLE IV ONE (02:45)
[2017-05-13] MEDS ORDERED: EPINEPHrine 1 MG/10 ML SYR IVP ONE (02:53)
[2017-05-13] MEDS ORDERED: fentanYL/NACL/100 ML BAG IV ONE (03:03)
[2017-05-13] MEDS ORDERED: fentaNYL 100 MCG/2 ML INJ IVP PRN (03:22)
[2017-05-13] MEDS ORDERED: ETOMIDATE 20 MG/10 ML VIAL ONE (03:26)
[2017-05-13] MEDS ORDERED: ROCURONIUM 100 MG/10 ML VIAL ONE (03:26)
[2017-05-13] MEDS ORDERED: ROCURONIUM 100 MG/10 ML VIAL IVP ONE (03:30)
[2017-05-13] MEDS ORDERED: ETOMIDATE 40 MG/20 ML INJ IV ONE (03:30)
[2017-05-13] MEDS: fentaNYL/NACL 100 ML IV SCH ×2 (03:31→13:49)
[2017-05-13] MEDS: PROPOFOL/EMULSION 100 ML IV SCH ×4 (03:31→21:17)
[2017-05-13] MEDS: ALBUTEROL 200 PUFFS/18 GM MDI IH PRN ×3 (04:30→18:18)
--- NOTE | 2017-05-13 04:31 | PDCONSULT ---
Hairpiece Stylist Note: Emergency department consult note. I was asked to go to the intensive care unit for patient in with pneumonia and respiratory distress requiring intubation. On arrival at found 61-year-old gentleman on BiPAP with labored respirations and borderline oxygen saturations. Patient is being cared for by Dr. Liriano, of pulmonology. Nursing staff insulting with Dr. Liriano if he is requesting the patient be intubated. The patient is awake and answering questions. He understands the risks and benefits associated with intubation. He is consenting at this time. He does not have a prior history of problems with anesthesia. Patient is admitted for pneumonia. Gen: Awake, Alert, BiPAP place, patient appears in significant respiratory distress HEENT: Nose: no rhinorrhea Eyes: PERRLA, EOMI Mouth: Moist mucosa Neck: Supple, no JVD Chest: Diffuse crackles Heart: S1, S2 normal, no murmur Abd: Soft, non-tender Ext: no edema, non-tender Skin: no rash Neuro: CN II-XII intact, Sensation grossly intact, Strength 5/5 in bilateral upper and lower extremities ED procedure note Indication for the procedure was respiratory distress. The patient was preoxygenated with 100% oxygen by BiPAP. The patient was sedated with etomidate , 20 mg and paralyzed with rocuronium, 100 mg. The patient was orally endotracheally intubated under direct visualization with a 8.0 ETT. Tracheal intubation was confirmed with misting on the tube; breath sounds were auscultated equally bilaterally; appropriate color change with [place] CO2 detector, capnography waveform is appropriate, oxygen saturation after procedure is 87%. Chest X-ray shows ETT in good position. The procedure was performed by myself.
[2017-05-13] MEDS: IPRATROPIUM/ALBUTEROL 3 ML DEYVIAL IH SCH ×4 (05:24→21:11)
[2017-05-13 05:32] LABS: PLATELET COUNT 165 10^3/uL (150-400)
[2017-05-13] MEDS: VANCOMYCIN 1.25 GM in D5W 250 ML IV SCH (08:43)
[2017-05-13] MEDS: methylPREDNISolone SOD SUCC 125 MG/2 ML VIAL IVP SCH (08:44)
[2017-05-13] MEDS: guaiFENesin 600 MG TAB.ER PO SCH ×2 (08:44→22:47)
[2017-05-13] MEDS: ENOXAPARIN 40 MG/0.4 ML SYR SC SCH (08:44)
[2017-05-13] MEDS: ASPIRIN EC 325 MG TAB PO SCH (08:44)
[2017-05-13] MEDS ORDERED: CHLORHEXIDINE GLUC HIBICLENS 118 ML BTL TP ONE (09:45)
--- NOTE | 2017-05-13 12:38 | PDINTPN ---
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 He was treated with Zosyn and Vanco, with the addition of steroids the next day. He was initially treated with bipap, then changed to vapotherm, but his O2 needs continued to worsen and he required urgent intubation on 05/12/17. His BP has been acceptable but marginal, but his renal function has been fine. He also had a spontaneous pneumothorax in spring, and a chest CT showed evidence of early ILD with honeycombing- but no further workup was initiated at that time. * Acute respiratory failure with hypoxia and ARDS 2/2 CAP. Started lung protective strategy with TV 6 ml/kg IBW and raised RR to compensate with current pH 7.40. Sedation adequate on propofol and fentanyl. Continue usual precautions including DVT and GI prophylaxis. Today is vent day #1 * CAP- Currently no organisms identified. Steroids added 2/2 severity of disease. Urine Strep and legionella Ag pending. Elevated wbc today likely 2/2 steroid. Continue to follow cultures * BP is marginal at the moment. Continue IVF, consider NICOM. No pressors required at this time. Target MAP>65. * Troponin- likely subendocardial ischemia, not ACS, from hypoxemia. * ETOH- not clear what his intake is, but no signs of WD at this point. * ILD- this has not been yet flushed out, but the honeycomb changes on his CT from 07/31/16 may have been related to sheet rock and gypsum exposure in the past. This will require work-up once the current issue resolved (eg PFTs, new HRCT, additional history gathering). Though the evidence was strong on admission for CAP, will look at procalcitonin now. Subjective: required emergent intubation 05/12 Objective: Vital Signs Temp Pulse Resp BP Pulse Ox 36.3 C 97 28 H 80/64 L 90 L 05/13/17 06:00 05/13/17 06:00 05/13/17 06:00 05/13/17 06:00 05/13/17 06:00 Microbiology 05/12/17 14:55 Respiratory Panel (PCR) - Final Nasal, Sinus - Anaerobic Tube/Swab No Organism Detected Laboratory Results 05/13/17 05:15 05/13/17 05:15 05/12/17 05/13/17 05/14/17 05:59 05:59 05:59 Intake Total 5144 3924 1469 Output Total 650 275 650 Balance 0189 3649 819 Physical Exam - Physical Exam General Appearance: no apparent distress, obtunded, other (sedated on vent) EENT: PERRL/EOMI, ET tube, No scleral icterus (R), No scleral icterus (L), No pharyngeal erythema Neck: supple Respiratory: decreased breath sounds, rales (few), No respiratory distress, No accessory muscle use Cardiac/Chest: regular rate, rhythm, No edema Abdomen: non-tender, soft, No distended Skin: normal color, warm/dry, No cyanosis Lymphatic: no adenopathy Extremities: other (digital clubbing), No pedal edema Neuro/Psych: cognition abnormalities (sedated on vent) ICD10 Worksheet Patient Problems: Problems Problem Status Onset Pneumonia Acute Severe sepsis Acute Hemoptysis Acute Pneumothorax Acute
[2017-05-13] MEDS ORDERED: ALTEPLASE 2 MG VIAL IVP PRN (15:01)
--- NOTE | 2017-05-13 15:55 | HOSPPROG ---
Hospitalist Progress Note Assessment/Plan: * Severe Pneumonia - community acquired -Zosyn, IV Vanco, azithromycin -IV solumedrol * Severe sepsis due to pneumonia * Acute respiratory failure - due to pneumonia -now intubated * ARDS -vent with lung protective strategy * Underlying ILD with honeycombing - may be due to sheet rock/gypsum exposure -further w/u as outpatient once pneumonia resolved * Troponin elevation - suspect strain due to sepsis rather than primary cardiac event -ischemic eval when more stable * Tobacco dependence * Etoh abuse - no evidence for withdrawal Subjective: Intubated overnight Objective: Vital Signs Temp Pulse Resp BP Pulse Ox 36.8 C 88 23 H 91/71 L 95 05/13/17 12:00 05/13/17 13:00 05/13/17 13:00 05/13/17 13:00 05/13/17 13:00 Microbiology 05/12/17 14:55 Respiratory Panel (PCR) - Final Nasal, Sinus - Anaerobic Tube/Swab No Organism Detected Laboratory Results 05/13/17 05:15 05/13/17 05:15 05/12/17 05/13/17 05/14/17 05:59 05:59 05:59 Intake Total 5149 3924 1469 Output Total 650 275 650 Balance 4499 3649 819 CXR viewed, my personal interpretation is - bilateral infiltrates tele - sinus rhythm - Physical Exam Constitutional: no apparent distress, appears nourished, not in pain Cardiovascular: regular rate and rhythym, no murmur, rub, or gallop Respiratory: no respiratory distress, no rales or rhonchi, clear to auscultation Gastrointestinal: normoactive bowel sounds, soft, non-tender abdomen, no palpable masses Skin: no rashes or abrasions, no fluctuance, no induration Neurologic: No AAOx3 Psychiatric: encephalopathic, other (intubated and sedated), No interacting appropriately ICD10 Worksheet Patient Problems: Problems Problem Status Onset Pneumonia Acute Severe sepsis Acute Hemoptysis Acute Pneumothorax Acute
[2017-05-13] MEDS ORDERED: ALBUMIN 5% 250 ML BOTTLE IV ONE (16:32)
[2017-05-13] MEDS ORDERED: ALBUMIN 5% 250 ML IV ONE (17:00)
[2017-05-13] MEDS: VANCOMYCIN 1.5 GM in D5W 250 ML IV SCH (20:47)
[2017-05-13] MEDS: AZITHROMYCIN IV 500 MG in D5W 250 ML IV SCH (22:44)
[2017-05-13] MEDS: IPRATROPIUM HFA INHALER IH SCH (23:50)
[2017-05-13] MEDS: ALBUTEROL 200 PUFFS/18 GM MDI IH SCH (23:50)
[2017-05-14] MEDS: fentaNYL/NACL 100 ML IV SCH ×2 (01:42→17:58)
[2017-05-14] MEDS: PIPERACILLIN/TAZO 4.5 GM/DEX 100 ML IV SCH ×4 (01:42→20:21)
[2017-05-14] MEDS: PROPOFOL/EMULSION 100 ML IV SCH ×3 (01:42→20:14)
[2017-05-14] MEDS: ALBUTEROL 200 PUFFS/18 GM MDI IH SCH ×6 (04:37→23:54)
[2017-05-14] MEDS: IPRATROPIUM HFA INHALER IH SCH ×6 (04:37→23:54)
[2017-05-14 05:28] LABS: PLATELET COUNT 115 10^3/uL (150-400)
[2017-05-14] MEDS: ENOXAPARIN 40 MG/0.4 ML SYR SC SCH (08:14)
[2017-05-14] MEDS: methylPREDNISolone SOD SUCC 125 MG/2 ML VIAL IVP SCH (08:14)
[2017-05-14] MEDS: VANCOMYCIN 1.5 GM in D5W 250 ML IV SCH ×2 (08:19→21:07)
[2017-05-14] MEDS ORDERED: ASPIRIN 325 MG TAB PO SCH (09:00)
[2017-05-14] MEDS: ASPIRIN EC 325 MG TAB PO SCH (09:14)
[2017-05-14] MEDS: guaiFENesin 600 MG TAB.ER PO SCH (09:15)
[2017-05-14] MEDS ORDERED: IBUPROFEN SUSP 100 MG/5 ML UDCUP TUBE PRN (11:29)
[2017-05-14] MEDS ORDERED: ONDANSETRON DISINTEGRATING 4 MG TAB TUBE PRN (11:30)
[2017-05-14] MEDS ORDERED: guaiFENesin/CODEINE PHOS 10 ML UDCUP TUBE PRN (11:30)
[2017-05-14] MEDS ORDERED: ACETAMINOPHEN 325 MG TAB TUBE PRN (11:30)
[2017-05-14] MEDS: guaiFENesin 200 MG/10 ML UDL TUBE SCH ×2 (11:57→17:58)
[2017-05-14] MEDS: NS 1,000 ML IV SCH (12:57)
[2017-05-14] MEDS: LORazepam 2 MG/ML INJ IVP PRN (12:57)
--- NOTE | 2017-05-14 13:11 | PDINTPN ---
Mold Forms Builder Progress Note Assessment/Plan: Assessment: 61 M without much PMH admitted 05/10/17 with SOB, cough after failing outpatient abx and found to have severe CAP with hypoxia. He was treated with Zosyn and Vanco, with the addition of steroids the next day. He was initially treated with bipap, then changed to vapotherm, but his O2 needs continued to worsen and he required urgent intubation on 05/12/17. His BP has been acceptable but marginal, but his renal function has been fine. He also had a spontaneous pneumothorax in spring, and a chest CT showed evidence of early ILD with honeycombing- but no further workup was initiated at that time. * Acute respiratory failure with hypoxia and ARDS 2/2 CAP. Started lung protective strategy with TV 6 ml/kg IBW and raised RR to compensate with current pH 7.40. Sedation adequate on propofol and fentanyl. CTSP emergently 1 PM due to cuff leak, respiratory distress. Sedation increased. ? possible need to exchange ETT. ETT advanced and leak resolved. CXR shows long trachea with ETT still 5-6 cm above kyleigh. Continue usual precautions including DVT and GI prophylaxis. * CAP- Currently no organisms identified. Procalcitonin low for bacterial infection. Steroids added 2/2 severity of disease. Urine Strep and legionella Ag pending. WBC down today, but CXR has yet to show improvement. * BP is improved a bit. Continue IVF, consider NICOM. No pressors required at this time. Target MAP>65. * Troponin- likely subendocardial ischemia, not ACS, from hypoxemia. * ETOH- not clear what his intake is, but no signs of WD at this point. * ILD- this has not been yet flushed out, but the honeycomb changes on his CT from 07/31/16 may have been related to sheet rock and gypsum exposure in the past. This will require work-up once the current issue resolved (eg PFTs, new HRCT, additional history gathering). DUPLIGRAPH OPERATOR, LIP, NSIP are also possibilities. On steroids. Plan: Advance ETT further and recheck ETT. Continue antibiotics, steroids. Will check serologies. 35 minutes CC time responding to acute respiratory distress with cuff leak, emergent reassessment of CXRs 05/14/17 13:32 Subjective: Sedated, unresponsive. Objective: Vital Signs Temp Pulse Resp BP Pulse Ox 36.9 C 96 24 H 92/63 L 93 05/14/17 11:00 05/14/17 11:57 05/14/17 11:57 05/14/17 11:00 05/14/17 11:57 Microbiology 05/12/17 07:50 - Final Sputum, Expectorated Laboratory Results 05/14/17 05:10 05/14/17 05:10 05/13/17 05/14/17 05/15/17 05:59 05:59 05:59 Intake Total 3924 6397.3 Output Total 275 1670 Balance 3649 4727.3 CXR: Persistent bilateral alveolar infiltrates. Images reviewed by me. Physical Exam - Physical Exam General Appearance: unresponsive, No alert EENT: normal ENT inspection Neck: normal inspection Respiratory: crackles Cardiac/Chest: regular rate, rhythm, No edema Abdomen: normal bowel sounds, non-tender, soft Skin: normal color, warm/dry Extremities: normal inspection Neuro/Psych: No alert ICD10 Worksheet Patient Problems: Problems Problem Status Onset Pneumonia Acute Severe sepsis Acute Hemoptysis Acute Pneumothorax Acute
--- NOTE | 2017-05-14 15:39 | HOSPPROG ---
Hospitalist Progress Note Assessment/Plan: * Severe Pneumonia - community acquired -Zosyn, IV Vanco, azithromycin -IV solumedrol -? 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 sheet rock/gypsum exposure -further w/u as outpatient once pneumonia resolved * Troponin elevation - suspect strain due to sepsis rather than primary cardiac event -ischemic eval when more stable * Tobacco dependence * Etoh abuse - no evidence for withdrawal Subjective: Some trouble with ETT today, now resolved Objective: Vital Signs Temp Pulse Resp BP Pulse Ox 36.6 C 80 22 H 100/67 95 05/14/17 15:00 05/14/17 15:00 05/14/17 15:00 05/14/17 15:00 05/14/17 15:00 Microbiology 05/12/17 07:50 - Final Sputum, Expectorated Laboratory Results 05/14/17 05:10 05/14/17 05:10 05/13/17 05/14/17 05/15/17 05:59 05:59 05:59 Intake Total 3924 6397.3 Output Total 275 1670 Balance 3649 4727.3 CXR viewed, my personal interpretation is - very nodular infiltrate tele reviewed - NSR - Physical Exam Constitutional: no apparent distress, appears nourished, not in pain Cardiovascular: regular rate and rhythym, no murmur, rub, or gallop Respiratory: no respiratory distress, no rales or rhonchi, clear to auscultation Gastrointestinal: normoactive bowel sounds, soft, non-tender abdomen, no palpable masses Skin: no rashes or abrasions, no fluctuance, no induration Neurologic: No AAOx3 Psychiatric: poor insight, poor judgement, poor memory, other (intubated and sedated), No interacting appropriately ICD10 Worksheet Patient Problems: Problems Problem Status Onset Pneumonia Acute Severe sepsis Acute Hemoptysis Acute Pneumothorax Acute
[2017-05-14] MEDS: AZITHROMYCIN IV 500 MG in D5W 250 ML IV SCH (21:17)
[2017-05-15] MEDS: guaiFENesin 200 MG/10 ML UDL TUBE SCH ×4 (00:34→17:20)
[2017-05-15] MEDS: PROPOFOL/EMULSION 100 ML IV SCH ×5 (01:21→21:18)
[2017-05-15] MEDS: PIPERACILLIN/TAZO 4.5 GM/DEX 100 ML IV SCH ×4 (02:28→20:23)
[2017-05-15] MEDS: fentaNYL/NACL 100 ML IV SCH (03:57)
[2017-05-15] MEDS: ALBUTEROL 200 PUFFS/18 GM MDI IH SCH ×6 (04:15→23:36)
[2017-05-15] MEDS: IPRATROPIUM HFA INHALER IH SCH ×6 (04:15→23:35)
[2017-05-15 04:30] LABS: PLATELET COUNT 106 10^3/uL (150-400)
[2017-05-15] MEDS: NS 1,000 ML IV SCH (04:53)
[2017-05-15] MEDS: ENOXAPARIN 40 MG/0.4 ML SYR SC SCH (09:11)
[2017-05-15] MEDS: methylPREDNISolone SOD SUCC 125 MG/2 ML VIAL IVP SCH (09:13)
[2017-05-15] MEDS: ASPIRIN 325 MG TAB TUBE SCH (09:14)
[2017-05-15] MEDS: VANCOMYCIN 1.5 GM in D5W 250 ML IV SCH ×2 (09:42→21:17)
--- NOTE | 2017-05-15 11:16 | PDINTPN ---
Breakfast Manager Progress Note Assessment/Plan: Assessment: 61 M without much PMH admitted 05/10/17 with SOB, cough after failing outpatient abx and found to have severe CAP with hypoxia. He was treated with Zosyn and Vanco, with the addition of steroids the next day. He was initially treated with bipap, then changed to vapotherm, but his O2 needs continued to worsen and he required urgent intubation on 05/12/17. His BP has been acceptable but marginal, but his renal function has been fine. He also had a spontaneous pneumothorax in spring, and a chest CT showed evidence of early ILD with honeycombing- but no further workup was initiated at that time. * Acute respiratory failure with hypoxia and ARDS 2/2 CAP. On lung protective strategy with TV 6 ml/kg IBW and high RR. Sedation adequate on propofol and fentanyl. Continue usual precautions including DVT and GI prophylaxis. * CAP- Currently no organisms identified. Procalcitonin low for bacterial infection. Steroids added 2/2 severity of disease. Urine Strep and legionella Ag pending. WBC down again today, but CXR has yet to show improvement. * BP is normal/low-normal. Continue IVF. No pressors required at this time. Target MAP>65. * Troponin- likely subendocardial ischemia, not ACS, from hypoxemia. * ETOH- not clear what his intake is, but no signs of WD at this point. * ILD- this has not been yet flushed out, but the honeycomb changes on his CT from 07/31/16 may have been related to sheet rock and gypsum exposure in the past. This will require work-up once the current issue resolved (eg PFTs, new HRCT, additional history gathering). NETWORKING SPECIALIST, LIP, NSIP are also possibilities. RF (+). On steroids. * Nutrition: On TF @ goal. Plan: Recheck CXR, ABG. Continue antibiotics, steroids, TF. Will check CCP. Await GROVER. 05/15/17 11:20 05/15/17 11:22 Subjective: Intubated, sedated, minimally responsive. Objective: Vital Signs Temp Pulse Resp BP Pulse Ox 37.3 C 87 25 H 98/62 L 94 05/15/17 10:00 05/15/17 10:00 05/15/17 10:00 05/15/17 10:05/15/17 10:00 Microbiology 05/12/17 07:50 - Final Sputum, Expectorated 05/14/17 20:00 - Final Sputum, Induced/Suctioned Laboratory Results 05/15/17 04:10 05/15/17 04:10 05/14/17 05/15/17 05/16/17 05:59 05:59 05:59 Intake Total 6397.3 5628.0 Output Total 1670 1318 Balance 4727.3 4310.0 Laboratory Tests 05/14/17 14:08 Rheum Factor Semi-Quant 43.2 H Physical Exam - Physical Exam General Appearance: alert, no apparent distress EENT: normal ENT inspection Neck: normal inspection Respiratory: crackles (bases) Cardiac/Chest: regular rate, rhythm, No edema Abdomen: normal bowel sounds, non-tender, soft Skin: normal color, warm/dry Extremities: normal inspection Neuro/Psych: No alert (sedated), No normal mood/affect, No motor weakness ICD10 Worksheet Patient Problems: Problems Problem Status Onset Pneumonia Acute Severe sepsis Acute Hemoptysis Acute Pneumothorax Acute
--- NOTE | 2017-05-15 12:49 | ASMTCMCOM ---
RENITA Note RENITA Note Notes: Spoke with patient's brother, Jeancarlos Awad ([phone]) who lives in [place]. He is planning on coming out as soon as he is better from a case of bronchitis. He would like to be kept informed of patient's condition and has been in touch with nurse Leblanc today. He hopes to be here to help patient make his transition back home. He states he is available to talk to any of the treatment team about his brother if needed. RENITA will follow. Date Signed: 05/15/2017 12:48 PM Electronically Signed By:Taisha Stauffer LCSW
--- NOTE | 2017-05-15 16:16 | HOSPPROG ---
Hospitalist Progress Note Assessment/Plan: * Severe Pneumonia - community acquired -Zosyn, IV Vanco, azithromycin -IV solumedrol -? 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 sheet rock/gypsum exposure -further w/u as outpatient once pneumonia resolved * Troponin elevation - suspect strain due to sepsis rather than primary cardiac event -ischemic eval when more stable * Tobacco dependence * Etoh abuse - no evidence for withdrawal Subjective: No events Objective: Vital Signs Temp Pulse Resp BP Pulse Ox 36.9 C 75 24 H 95/70 L 93 05/15/17 15:00 05/15/17 15:00 05/15/17 15:00 05/15/17 15:00 05/15/17 15:00 Microbiology 05/14/17 20:00 - Final Sputum, Induced/Suctioned 05/12/17 07:50 - Final Sputum, Expectorated Sputum Culture - Final Chela Albicans Laboratory Results 05/15/17 04:10 05/15/17 04:10 05/14/17 05/15/17 05/16/17 05:59 05:59 05:59 Intake Total 6397.3 5628.0 Output Total 1670 1318 Balance 4727.3 4310.0 CXR viewed, my personal interpretation is - persistent nodular infiltrate tele - NSR - Physical Exam Constitutional: no apparent distress, appears nourished, not in pain Cardiovascular: regular rate and rhythym, no murmur, rub, or gallop Respiratory: no respiratory distress, no rales or rhonchi, clear to auscultation Gastrointestinal: normoactive bowel sounds, soft, non-tender abdomen, no palpable masses Skin: no rashes or abrasions, no fluctuance, no induration Neurologic: No AAOx3 Psychiatric: poor insight, poor judgement, poor memory, other (intubated and sedated), No interacting appropriately ICD10 Worksheet Patient Problems: Problems Problem Status Onset Pneumonia Acute Severe sepsis Acute Hemoptysis Acute Pneumothorax Acute
[2017-05-15] MEDS: LORazepam 2 MG/ML INJ IVP PRN (20:22)
[2017-05-15] MEDS: AZITHROMYCIN IV 500 MG in D5W 250 ML IV SCH (20:23)
[2017-05-16] MEDS: guaiFENesin 200 MG/10 ML UDL TUBE SCH ×4 (00:01→17:35)
[2017-05-16] MEDS: fentaNYL/NACL 100 ML IV SCH ×4 (01:58→21:15)
[2017-05-16] MEDS: PIPERACILLIN/TAZO 4.5 GM/DEX 100 ML IV SCH ×3 (01:58→13:46)
[2017-05-16] MEDS: IPRATROPIUM HFA INHALER IH SCH ×6 (04:01→23:36)
[2017-05-16] MEDS: ALBUTEROL 200 PUFFS/18 GM MDI IH SCH ×6 (04:01→23:36)
[2017-05-16 04:52] LABS: PLATELET COUNT 109 10^3/uL (150-400)
[2017-05-16] MEDS: methylPREDNISolone SOD SUCC 125 MG/2 ML VIAL IVP SCH (08:20)
[2017-05-16] MEDS: ENOXAPARIN 40 MG/0.4 ML SYR SC SCH (08:20)
[2017-05-16] MEDS: VANCOMYCIN 1.5 GM in D5W 250 ML IV SCH ×2 (08:20→21:15)
[2017-05-16] MEDS: ASPIRIN 325 MG TAB TUBE SCH (08:20)
[2017-05-16] MEDS: PROPOFOL/EMULSION 100 ML IV SCH ×4 (09:17→21:44)
[2017-05-16] MEDS: NS 1,000 ML IV SCH (12:32)
--- NOTE | 2017-05-16 13:44 | PDINTPN ---
Ticket Manager Progress Note Assessment/Plan: Assessment: 61 M without much PMH admitted 05/10/17 with SOB, cough after failing outpatient abx and found to have severe CAP with hypoxia. He was treated with Zosyn and Vanco, with the addition of steroids the next day. He was initially treated with bipap, then changed to vapotherm, but his O2 needs continued to worsen and he required urgent intubation on 05/12/17. His BP has been acceptable but marginal, but his renal function has been fine. He also had a spontaneous pneumothorax in spring, and a chest CT showed evidence of early ILD with honeycombing- but no further workup was initiated at that time. * Acute respiratory failure with hypoxia and ARDS 2/2 CAP. Infiltrates progressing despite Vanco/Zosyn and steroids. On lung protective strategy with TV 6 ml/kg IBW and high RR. Sedation adequate on propofol and fentanyl. Continue usual precautions including DVT and GI prophylaxis. * CAP- Currently no organisms identified. Procalcitonin low for bacterial infection. Steroids added 2/2 severity of disease. Legionella, RSV, Strep negative. BC down again today, but CXR looks a bit worse. * BP is normal/low-normal. Continue IVF. No pressors required at this time. Target MAP>65. * Troponin- likely subendocardial ischemia, not ACS, from hypoxemia. * ETOH- not clear what his intake is, but no signs of WD at this point. * ILD- this has not been yet flushed out, but the honeycomb changes on his CT from 07/31/16 may have been related to sheet rock and gypsum exposure in the past. This will require work-up once the current issue resolved (eg PFTs, new HRCT, additional history gathering). OVERHEAD IRRIGATOR, LIP, NSIP are also possibilities. RF (+). On steroids. * Nutrition: On TF @ goal. Plan: Follow CXR, ABG. Continue antibiotics, steroids, TF. Await CCP. Will check ANCA, complement levels, respiratory panel. Consider ID consult. May need VATS/trach if not improving. 05/16/17 13:45 Subjective: Intubated, sedated. Objective: Vital Signs Temp Pulse Resp BP Pulse Ox 37.4 C 93 28 H 117/80 94 05/16/17 12:00 05/16/17 12:00 05/16/17 12:00 05/16/17 12:00 05/16/17 12:00 Microbiology 05/14/17 20:00 - Final Sputum, Induced/Suctioned 05/12/17 07:50 - Final Sputum, Expectorated Sputum Culture - Final Chela Albicans Laboratory Results 05/16/17 04:20 05/16/17 04:20 05/15/17 05/16/17 05/17/17 05:59 05:59 05:59 Intake Total 5628.0 4977 Output Total 1318 1500 Balance 4310.0 3477 CXR: Increased right lower lung field infiltrate. Images reviewed by me. Laboratory Tests 05/14/17 14:08 [facility]OVER Screen 0.09 Laboratory Tests 05/15/17 13:25 pCO2 55 H pO2 88 H Total CO2 32 H ABG pH 7.36 ABG HCO3 30 H O2 Concentration % 80 Respiration Rate 32 Set Respiration Rate 28 Assist Control YES Tidal Volume 480 Physical Exam - Physical Exam General Appearance: alert, no apparent distress EENT: normal ENT inspection Neck: normal inspection Respiratory: crackles Cardiac/Chest: regular rate, rhythm, No edema Abdomen: normal bowel sounds, non-tender, soft Skin: normal color, warm/dry Extremities: normal inspection Neuro/Psych: No alert ICD10 Worksheet Patient Problems: Problems Problem Status Onset Pneumonia Acute Severe sepsis Acute Hemoptysis Acute Pneumothorax Acute
[2017-05-16] MEDS ORDERED: FUROSEMIDE 20 MG/2 ML VIAL IVP ONE (18:16)
[2017-05-16] MEDS: PETROLAT,WHT/MIN OIL/SOD CHL 3.5 GM OPHT.OINT EACHEYE PRN (18:49)
--- NOTE | 2017-05-16 19:15 | HOSPPROG ---
Hospitalist Progress Note Assessment/Plan: * Severe Pneumonia -Zosyn, IV Vanco, azithromycin - consider de-escalate - d/w Dr. Soto -IV solumedrol -? 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 sheet rock/gypsum exposure -further w/u as outpatient once pneumonia resolved -rheumatoid factor + * Troponin elevation - suspect strain due to sepsis rather than primary cardiac event -ischemic eval when more stable * Tobacco dependence * Etoh abuse - no evidence for withdrawal Subjective: no event Objective: Vital Signs Temp Pulse Resp BP Pulse Ox 37.0 C 106 H 26 H 128/93 H 93 05/16/17 18:00 05/16/17 18:00 05/16/17 18:00 05/16/17 18:00 05/16/17 18:00 Microbiology 05/16/17 16:08 Respiratory Panel (PCR) - Final Nasal, Sinus - Swab No Organism Detected 05/14/17 20:00 - Final Sputum, Induced/Suctioned Sputum Culture - Final Chela Albicans 05/12/17 07:50 - Final Sputum, Expectorated Sputum Culture - Final Chela Albicans Laboratory Results 05/16/17 04:20 05/16/17 04:20 05/15/17 05/16/17 05/17/17 05:59 05:59 05:59 Intake Total 5628.0 4977 1954 Output Total 1318 1500 1375 Balance 4310.0 3477 579 case d/w Dr. Soto regarding deescalate abx CXR viewed, my personal interpretation - persistent infiltrates - Physical Exam Constitutional: no apparent distress, appears nourished, not in pain Cardiovascular: regular rate and rhythym, no murmur, rub, or gallop Respiratory: no respiratory distress, no rales or rhonchi, clear to auscultation Gastrointestinal: normoactive bowel sounds, soft, non-tender abdomen, no palpable masses Skin: no rashes or abrasions, no fluctuance, no induration Neurologic: AAOx3, sensation intact bilaterally Psychiatric: interacting appropriately, not anxious, not encephalopathic, thought process linear ICD10 Worksheet Patient Problems: Problems Problem Status Onset Pneumonia Acute Severe sepsis Acute Hemoptysis Acute Pneumothorax Acute
[2017-05-16] MEDS: LORazepam 2 MG/ML INJ IVP PRN (21:15)
--- NOTE | 2017-05-16 23:50 | GCON ---
[f rep st] CONSULTATION INFECTIOUS DISEASES CONSULTATION DATE OF CONSULTATION: 05/16/2017 REFERRING PHYSICIAN: Erna Shaffer MD REASON FOR CONSULTATION: Bilateral pneumonia. HISTORY OF PRESENT ILLNESS: Patient is a 61-year-old male, whom I am asked to see in consultation fo r bilateral pneumonia. Patient is currently intubated and sedated so is therefore unable to provide any history. Ancillary history is obtained from one of the patient's coworkers. Patient is describe d as developing shortness of breath and nonproductive cough with fatigue over the last month. These are described as being intermittently present. Patient was treated with amoxicillin in late March with some temporary improvement in his symptoms. However, he did not experience further improvement and was seen by his primary care provider 2 days prior to his hospital admission. Chest x-ray was p erformed, which revealed pneumonia, and he was started on levofloxacin, which he is described as taki ng 2 doses without improvement. On the day of his presentation, he had significant shortness of rhett th, prompting further evaluation. His shortness of breath had led him to stop smoking in the days pr eceding admission. Initial chest x-ray showed significant bilateral airspace consolidation. He was started empirically on vancomycin, Zosyn, and azithromycin, which has been continued through today. Ultimately, he developed progressive respiratory failure requiring intubation and mechanical ventilat ion. 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 He does not recall any exposure to significant rodent droppings or any exposure to animal carcass es. Patient was noted to travel to visit family in [place] over . No other travel is recalled. He does work frequently with [employer], as well. No hobbies such as spelunking. Initial l aboratory testing also was notable for prominent leukocytosis. He also has had an elevated rheumatoi d factor. Respiratory panel by PCR has been negative, as have urine Legionella and Streptococcus pne umoniae antigens. Sputum has shown growth of Chela albicans. Given the above findings and lack of response to broad-spectrum antibiotic therapy, I am now asked to assist in his ongoing management fr om an infectious disease perspective. PAST MEDICAL HISTORY: Possible interstitial lung disease, spontaneous pneumothorax, osteoarthritis. PAST SURGICAL HISTORY: Chest tube placement in 2017. SOCIAL HISTORY: Patient has a prior heavy smoking history; also with notable heavy alcohol intake, b ut this was not noted over the past month; H and P notes use of marijuana. CURRENT MEDICATIONS: Vancomycin 1.5 g IV q.12 hours; Zosyn 4.5 g IV q.6 hours; azithromycin 500 mg I V daily; Solu-Medrol 60 mg IV daily; propofol drip; Atrovent 2 puffs q.4 hours; fentanyl drip; Loveno x 40 mg subcu daily; Tessalon Perles 200 mg p.o. t.i.d. as needed; aspirin 325 mg p.o. daily. ALLERGIES: No known drug allergies. FAMILY HISTORY: Coronary artery disease. REVIEW OF SYSTEMS: Currently, a 10-system review cannot be obtained given the patient is intubated a nd sedated. PHYSICAL EXAMINATION: VITAL SIGNS: Temperature 37.0, heart rate 106, respiratory rate 26, blood pre ssure 128/93, oxygen saturation 93% on 70% FiO2. GENERAL: Patient is intubated and sedated. He back s open eyes to name. HEENT: There is no scleral icterus, conjunctival injection, or conjunctival pe techiae. ET tube is present. There is no nasal discharge. NECK: Supple without palpable lymphaden opathy or thyromegaly. CHEST: Clear to auscultation anterolaterally. The respiratory effort is inc reased. CARDIOVASCULAR: Tachycardic without murmurs, gallops, or rubs. ABDOMEN: Soft, nontender, nondistended. There is no palpable organomegaly. Bowel sounds are hypoactive. MUSCULOSKELETAL: No cyanosis, clubbing, or edema. SKIN: No rashes are present. There are no stigmata of endocarditis. The skin is warm and dry to touch. LYMPHATICS: No cervical, supraclavicular, or inguinal nodes pa lpable. LABORATORY DATA: White blood cell count 12.0, hematocrit 37.6, platelets 109, neutrophils 81%. Crea tinine 0.6. AST 44, ALT 32, procalcitonin 0.13. Influenza testing by PCR is negative. Vancomycin t rough yesterday is 9.4. Urine legionella and Streptococcus pneumoniae antigens are negative. GROVER is negative; rheumatoid factor positive a 43.2; anti-CCP pending; complements, ANCA, Oliva-1 antibody pend ing. Blood cultures x2 sets are no growth. Sputum x2 shows Chela albicans. Respiratory panel cintia ws no organism. IMAGING DATA: Chest x-ray shows bilateral dense consolidation. IMPRESSION: Bilateral severe pneumonia: Patient with bilateral dense consolidation, which has not i mproved with antibiotic therapy, although white blood cell count has decreased. Considerations inclu de both infectious and noninfectious etiologies. Typical bacterial pathogens are possible but have n ot been isolated to date. Viral etiology is also a consideration, although no organisms have been fo und on PCR testing. Less common causes of pneumonia such as fungal etiology, tularemia, or hantaviru s are also considerations. Unable to obtain full history from patient given intubation and sedation today. Noninfectious etiologies such as cryptogenic organizing pneumonia or autoimmune disease are a lso of consideration. RECOMMENDATIONS: 1. Agree with empiric vancomycin pending further culture data (if no MRSA isolated with bronchoscopy , will discontinue). 2. Levofloxacin 750 mg IV daily (do not think he failed this prior to presentation). 3. Discontinue Zosyn and azithromycin. 4. Serologic testing for cryptococcus, tularemia, hantavirus, and coccidioides. 5. Check HIV antibody. 6. Agree with plans for autoimmune evaluation. 7. Agree with plans for bronchoscopy, which will allow for legionella culture and cytologic testing for pneumocystis. 8. Ultimately may require open lung biopsy if above findings are unrevealing/nondiagnostic. Above f indings and plan were discussed with Dr. Shaffer and Dr. Zimmerman today. Thank you for this consultation. We will continue to follow the patient with you. /[id number]/MODL
[2017-05-17] MEDS: guaiFENesin 200 MG/10 ML UDL TUBE SCH ×4 (02:16→17:28)
[2017-05-17] MEDS: fentaNYL/NACL 100 ML IV SCH ×5 (02:58→21:13)
[2017-05-17] MEDS: PROPOFOL/EMULSION 100 ML IV SCH ×4 (02:58→21:13)
[2017-05-17] MEDS ORDERED: ORAL BALANCE GEL TUBE PO PRN (02:58)
[2017-05-17] MEDS: ORAL BALANCE GEL TUBE PO PRN (03:14)
[2017-05-17 04:04] LABS: PLATELET COUNT 137 10^3/uL (150-400)
[2017-05-17] MEDS: IPRATROPIUM HFA INHALER IH SCH ×5 (04:15→20:13)
[2017-05-17] MEDS: ALBUTEROL 200 PUFFS/18 GM MDI IH SCH ×5 (04:16→20:13)
[2017-05-17] MEDS: LORazepam 2 MG/ML INJ IVP PRN ×3 (04:31→17:28)
[2017-05-17] MEDS: CHLORHEXIDINE GLUCONATE 15 ML UDL PO SCH ×6 (04:36→21:13)
[2017-05-17 05:17] LABS: HIV TYPE 1 AND 2 NEGATIVE (NEGATIVE)
[2017-05-17] MEDS: ENOXAPARIN 40 MG/0.4 ML SYR SC SCH (07:53)
[2017-05-17] MEDS: VANCOMYCIN 1.5 GM in D5W 250 ML IV SCH ×2 (07:53→21:09)
[2017-05-17] MEDS: ASPIRIN 325 MG TAB TUBE SCH (07:54)
[2017-05-17] MEDS: methylPREDNISolone SOD SUCC 125 MG/2 ML VIAL IVP SCH (07:54)
[2017-05-17] MEDS ORDERED: LIDOCAINE 2% JELLY 5 ML TUBE TP ONE (09:15)
[2017-05-17] MEDS ORDERED: LIDOCAINE 1% 300 MG/30 ML SDV MISC ONE (09:15)
--- NOTE | 2017-05-17 09:18 | PDINTPN ---
Oven Unloader Progress Note Assessment/Plan: Assessment: 61 M without much PMH admitted 05/10/17 with SOB, cough after failing outpatient abx and found to have severe CAP with hypoxia. He was treated with Zosyn and Vanco, with the addition of steroids the next day. He was initially treated with bipap, then changed to vapotherm, but his O2 needs continued to worsen and he required urgent intubation on 05/12/17. His BP has been acceptable but marginal, but his renal function has been fine. He also had a spontaneous pneumothorax in spring, and a chest CT showed evidence of early ILD with honeycombing- but no further workup was initiated at that time. * Acute respiratory failure with hypoxia and ARDS 2/2 CAP. Infiltrates progressing despite Vanco/Zosyn and steroids. Changed to Levo/Vanco 05/16/17. On lung protective strategy with TV 6 ml/kg IBW and high RR. Sedation adequate on propofol and fentanyl, with PRN Ativan. Continue usual precautions including DVT and GI prophylaxis. * CAP- Currently no organisms identified. Procalcitonin low for bacterial infection. Steroids added 2/2 severity of disease. Legionella, RSV, Strep negative. WBC up a bit today. * BP is normal/low-normal. Continue IVF. No pressors required at this time. Target MAP>65. * Troponin- likely subendocardial ischemia, not ACS, from hypoxemia. * ETOH- not clear what his intake is, but no signs of WD at this point. * ILD- this has not been yet flushed out, but the honeycomb changes on his CT from 07/31/16 may have been related to sheet rock and gypsum exposure in the past. This will require work-up once the current issue resolved (e.g. PFTs, new HRCT, additional history gathering). MANAGER BUILDING, LIP, NSIP are also possibilities. RF (+). On steroids. * Nutrition: On TF @ goal. Plan: Follow CXR, ABG. Continue antibiotics, steroids, TF. Await CCP, ANCA, complement levels, respiratory panel. Will proceed with BAL. Check SPEP, IgG subtypes, SSA/SSB. May need VATS/trach if not improving. 05/17/17 09:30 Subjective: Intubated, sedated. Objective: Vital Signs Temp Pulse Resp BP Pulse Ox 37.2 C 88 25 H 105/70 96 05/17/17 08:00 05/17/17 08:00 05/17/17 08:00 05/17/17 08:00 05/17/17 08:00 Microbiology 05/16/17 16:08 Respiratory Panel (PCR) - Final Nasal, Sinus - Swab No Organism Detected 05/14/17 20:00 - Final Sputum, Induced/Suctioned Sputum Culture - Final Chela Albicans Laboratory Results 05/17/17 03:45 05/17/17 03:45 05/16/17 05/17/17 05/18/17 05:59 05:59 05:59 Intake Total 4977 3680 Output Total 1500 3995 70 Balance 1408 -174 -70 Physical Exam - Physical Exam General Appearance: alert, no apparent distress EENT: normal ENT inspection Neck: normal inspection Respiratory: lungs clear, normal breath sounds Cardiac/Chest: regular rate, rhythm Abdomen: normal bowel sounds, non-tender, soft Skin: normal color, warm/dry Extremities: normal inspection Neuro/Psych: No alert (sedated), No normal mood/affect, No oriented x 3 ICD10 Worksheet Patient Problems: Problems Problem Status Onset Pneumonia Acute Severe sepsis Acute Hemoptysis Acute Pneumothorax Acute
--- NOTE | 2017-05-17 10:28 | PCMIDPN ---
Assessment/Plan: Assessment/Plan: * Bilateral severe pneumonia: No defined etiology to date. Continues to require high FiO2. Multiple serologic studies for autoimmune disease or infectious diseases are pending. Plans for bronchoscopy today for additional ID cultures. Will send for Legionella culture given potential for urinary antigen to be negative if species other than pneumophila. Continue vancomycin and levofloxacin pending cultures. Hope to be able to stop vancomycin if cultures do not show evidence of MRSA. Call findings and plan reviewed with ICU team during rounds today. 05/17/17 10:24 Subjective: Intubated, sedated. FiO2 80%. Plans for bronchoscopy this a.m.. Objective: Vital Signs Temp Pulse Resp BP Pulse Ox 37.2 C 90 23 H 112/60 94 05/17/17 10:00 05/17/17 10:00 05/17/17 10:00 05/17/17 10:00 05/17/17 10:00 Microbiology 05/16/17 16:08 Respiratory Panel (PCR) - Final Nasal, Sinus - Swab No Organism Detected 05/14/17 20:00 - Final Sputum, Induced/Suctioned Sputum Culture - Final Chela Albicans Laboratory Results 05/17/17 03:45 05/17/17 03:45 05/16/17 05/17/17 05/18/17 05:59 05:59 05:59 Intake Total 4977 3680 Output Total 1500 3995 170 Balance 3477 -315 -170 Vancomycin # 6 Levofloxacin # 2 (status post Zosyn and azithromycin x4 days) HIV antibody negative - Physical Exam General Appearance: non-toxic, other (Intubated, sedated) EENT: ET Tube, other (Mild bilateral conjunctival injection), No scleral icterus Respiratory: lungs clear, other (Mechanically ventilated) Cardiac/Chest: regular rate, rhythm, No systolic murmur Extremities: other (Early clubbing of toes), No inflammation Abdomen: non-tender, No distended Skin: No embolic lesions ICD10 Worksheet Patient Problems: Problems Problem Status Onset Pneumonia Acute Severe sepsis Acute Hemoptysis Acute Pneumothorax Acute
--- NOTE | 2017-05-17 11:44 | HOSPPROG ---
Hospitalist Progress Note Assessment/Plan: Acute hypoxemic respiratory failure 2/2 severe B/L Pneumonia - BCx's neg. No orgs on sputum Cx other than chela -Cont Zosyn, IV Vanco, azithromycin, discussed with Dr. Soto -further ID w/u for infectious / autoimmune etiologies -bronch today per pulm -IV solumedrol Severe sepsis due to pneumonia with leukocytosis, tachypnea, tachycardia and elevated lactate - HR improved, but still with elevated wbc's and tachypnea -management as above ARDS -vent with lung protective strategy Underlying ILD with honeycombing - may be due to sheet rock/gypsum exposure -further w/u with high res CT as outpatient once pneumonia resolved -rheumatoid factor + Troponin elevation - suspect strain due to sepsis rather than primary cardiac event -ischemic eval when more stable Tobacco dependence Etoh abuse - no evidence for withdrawal DVT PPLX - Lovenox Full code Dispo - cont inpt / ICU, discussed with Dr. Zimmerman, multi-disciplinary team Subjective: Pt vented, sedated, not following commands, just received ativan and additional propofol. No fevers. Objective: Vital Signs Temp Pulse Resp BP Pulse Ox 37.2 C 83 26 H 106/63 95 05/17/17 10:00 05/17/17 11:22 05/17/17 11:22 05/17/17 11:00 05/17/17 11:22 Microbiology 05/16/17 16:08 Respiratory Panel (PCR) - Final Nasal, Sinus - Swab No Organism Detected 05/14/17 20:00 - Final Sputum, Induced/Suctioned Sputum Culture - Final Chela Albicans Laboratory Results 05/17/17 03:45 05/17/17 03:45 05/16/17 05/17/17 05/18/17 05:59 05:59 05:59 Intake Total 4977 3680 Output Total 1500 3995 170 Balance 3327 -315 -170 - Physical Exam Constitutional: no apparent distress Eyes: PERRL Cardiovascular: regular rate and rhythym Respiratory: no respiratory distress, clear to auscultation, reduced air movement Gastrointestinal: normoactive bowel sounds, soft, non-tender abdomen Skin: warm Neurologic: other (sedated, not following commands) Psychiatric: other (sedated on vent) ICD10 Worksheet Patient Problems: Problems Problem Status Onset Pneumonia Acute Severe sepsis Acute Hemoptysis Acute Pneumothorax Acute
--- NOTE | 2017-05-17 12:51 | ASMTCMCOM ---
CM Note CM Note Notes: Patient to get a bronch today. Patient's friend Jarred participated in rounds this morning. Jarred will call Jeancarlos, patient's brother, to give him an update. D/C plan remains independent at this time. CM available if needs arise. Date Signed: 05/17/2017 12:50 PM Electronically Signed By:Taisha Stauffer LCSW
--- NOTE | 2017-05-17 15:28 | GPN ---
[f rep st] PROCEDURE NOTE DATE OF PROCEDURE: 05/17/2017 PROCEDURE PERFORMED: Flexible fiberoptic bronchoscopy with bronchoalveolar lavage. REASON FOR PROCEDURE: Persistent respiratory failure with pulmonary infiltrates, diagnostic and ther apeutic bronchoscopy. PROCEDURE NOTE: The risks and benefits of the procedure were explained to the patient's son, Jeancarlos, who agreed to proceed. The entire procedure was performed in the intensive care unit with the patie nt under blood pressure, EKG, and oximetry monitoring. It was my assessment that there was no risk o f airborne infection from the procedure. After a time-out, 2 cc of 1% lidocaine was instilled into t he patient's endotracheal tube. The bronchoscope was advanced through the endotracheal tube, which h ad extensive mucopurulent secretions coating it. I advanced through the endotracheal tube into the r ight-sided airways, where there were a moderate amount of bloody purulent secretions. I proceeded di rectly to the middle lobe, where a wedge position was obtained and lavage was performed with 40 cc of fluid, with return of bloody fluid. The specimen trap was then removed from the bronchoscope and I continued to suction therapeutically, aspirating several bloody, purulent plugs from the right more s o than left-sided airways. All airways were clear of major secretions at the end of the procedure. The endotracheal tube remained fairly encrusted with purulent secretions. The patient tolerated the procedure well with the exception of a fall in his saturations to the 70s, which improved with removi ng the bronchoscope. Specimens will be sent for requested cultures. /[id number]/MODL
[2017-05-17] MEDS ORDERED: VANCOMYCIN 1.75 GM in D5W 500 ML IV SCH (21:00)
[2017-05-18] MEDS: guaiFENesin 200 MG/10 ML UDL TUBE SCH ×5 (00:11→23:26)
[2017-05-18] MEDS: ALBUTEROL 200 PUFFS/18 GM MDI IH SCH ×7 (00:19→23:50)
[2017-05-18] MEDS: IPRATROPIUM HFA INHALER IH SCH ×7 (00:19→23:50)
[2017-05-18] MEDS: LORazepam 2 MG/ML INJ IVP PRN ×3 (00:51→16:26)
[2017-05-18] MEDS: CHLORHEXIDINE GLUCONATE 15 ML UDL PO SCH ×6 (02:54→20:20)
[2017-05-18] MEDS: PROPOFOL/EMULSION 100 ML IV SCH ×5 (02:54→23:23)
[2017-05-18 04:12] LABS: PLATELET COUNT 140 10^3/uL (150-400)
[2017-05-18] MEDS: methylPREDNISolone SOD SUCC 125 MG/2 ML VIAL IVP SCH ×4 (08:38→23:26)
[2017-05-18] MEDS: ENOXAPARIN 40 MG/0.4 ML SYR SC SCH (08:38)
[2017-05-18] MEDS: ASPIRIN 325 MG TAB TUBE SCH (08:38)
[2017-05-18] MEDS: VANCOMYCIN 1.5 GM in D5W 250 ML IV SCH ×2 (08:41→20:06)
[2017-05-18] MEDS ORDERED: hydrALAZINE 20 MG/ML VIAL IVP PRN (09:02)
--- NOTE | 2017-05-18 09:16 | PDINTPN ---
Certified Dialysis Technician Progress Note Assessment/Plan: Assessment: 61 M without much PMH admitted 05/10/17 with SOB, cough after failing outpatient abx and found to have severe CAP with hypoxia. He was treated with Zosyn and Vanco, with the addition of steroids the next day. He was initially treated with bipap, then changed to vapotherm, but his O2 needs continued to worsen and he required urgent intubation on 05/12/17. His BP has been acceptable but marginal, but his renal function has been fine. He also had a spontaneous pneumothorax in spring, and a chest CT showed evidence of early ILD with honeycombing- but no further workup was initiated at that time. * Acute respiratory failure with hypoxia and ARDS 2/2 CAP. Infiltrates progressing despite Vanco/Zosyn and steroids. Changed to Levo/Vanco 05/16/17. On lung protective strategy with TV 6 ml/kg IBW and high RR. Sedation adequate on propofol and fentanyl, with PRN Ativan. Continue usual precautions including DVT and GI prophylaxis. * CAP- Currently no organisms identified. Procalcitonin low for bacterial infection. Steroids added 2/2 severity of disease. Legionella, RSV, Strep negative. WBC up a bit today. * BP is normal/low-normal. Continue IVF. No pressors required at this time. Target MAP>65. * Troponin- likely subendocardial ischemia, not ACS, from hypoxemia. * ETOH- not clear what his intake is, but no signs of WD at this point. * ILD- this has not been yet flushed out, but the honeycomb changes on his CT from 07/31/16 may have been related to sheet rock and gypsum exposure in the past. This will require work-up once the current issue resolved (e.g. PFTs, new HRCT, additional history gathering). HYDROTREATER OPERATOR, LIP, NSIP are also possibilities. RF (+). On steroids. * Nutrition: On TF @ goal. Plan: Follow CXR, ABG. Continue antibiotics, steroids, TF. Await CCP, ANCA, complement levels, respiratory panel. Will proceed with BAL. Check SPEP, IgG subtypes, SSA/SSB. May need VATS/trach if not improving. 05/17/17 09:30 Subjective: Intubated, sedated, not responsive Objective: Vital Signs Temp Pulse Resp BP Pulse Ox 37.7 C 112 H 29 H 184/112 H 96 05/18/17 08:33 05/18/17 08:33 05/18/17 08:33 05/18/17 08:33 05/18/17 08:33 Microbiology 05/17/17 14:49 Gram Stain - Final Lung Bilateral - Bronchial Washings Laboratory Results 05/18/17 03:50 05/18/17 03:55 05/17/17 05/18/17 05/19/17 05:59 05:59 05:59 Intake Total 3680 4528.8 Output Total 3995 2080 200 Balance -315 2448.8 -200 Laboratory Tests 05/15/17 05/16/17 05/16/17 13:02 15:48 17:45 Creatine Kinase 23 Anti-Cycl Citrul Peptide < 15.6 Proteinase 3 (PR3) < 0.2 Myeloperoxidase Ab <0.2 Complement C3 121 Complement C4 20 Tot Complement (CH50) 64 CXR: Overall stable, with slight increase in right infiltrates, slight decrease in left infiltrates. Images reviewed by me. Physical Exam - Physical Exam General Appearance: alert, no apparent distress EENT: normal ENT inspection Neck: normal inspection Respiratory: respiratory distress, crackles Cardiac/Chest: tachycardia Abdomen: normal bowel sounds, non-tender, soft Skin: normal color, warm/dry Extremities: normal inspection Neuro/Psych: other (sedated), No alert ICD10 Worksheet Patient Problems: Problems Problem Status Onset Pneumonia Acute Severe sepsis Acute Hemoptysis Acute Pneumothorax Acute
--- NOTE | 2017-05-18 09:28 | HOSPPROG ---
Hospitalist Progress Note Assessment/Plan: Acute hypoxemic respiratory failure 2/2 severe B/L Pneumonia - BCx's neg. No orgs on sputum Cx other than santo. Volume up ~20 L net pos. -IV Lasix today -Vanc + Levaquin -further w/u for infectious / autoimmune etiologies per ID -bronch yesterday, Cx's pending -IV solumedrol Severe sepsis due to pneumonia with leukocytosis, tachypnea, tachycardia and elevated lactate -management as above ARDS -vent with lung protective strategy Underlying ILD with honeycombing - may be due to sheet rock/gypsum exposure -further w/u with high res CT as outpatient once pneumonia resolved -rheumatoid factor + Hypertension - likely related to volume overload -IV hydralazine + lasix Troponin elevation - suspect strain due to sepsis rather than primary cardiac event -ischemic eval when more stable Tobacco dependence Etoh abuse - no evidence for withdrawal FEN - tube feeds DVT PPLX - Lovenox Full code Dispo - cont inpt / ICU, discussed with Dr. Zimmerman, multi-disciplinary team Subjective: Pt ventilated, sedated, not following commands. Afebrile. [place] frothy sputum new this am, increased RR and HR, appears uncomfortable Objective: Vital Signs Temp Pulse Resp BP Pulse Ox 37.7 C 112 H 29 H 190/109 H 96 05/18/17 08:33 05/18/17 08:33 05/18/17 08:33 05/18/17 09:17 05/18/17 08:33 Microbiology 05/17/17 14:49 Gram Stain - Final Lung Bilateral - Bronchial Washings Laboratory Results 05/18/17 03:50 05/18/17 03:55 05/17/17 05/18/17 05/19/17 05:59 05:59 05:59 Intake Total 3680 4528.8 Output Total 3995 2080 200 Balance -315 2448.8 -200 - Physical Exam Constitutional: uncomfortable Eyes: PERRL Cardiovascular: tachycardia Respiratory: inspiratory crackles, respiratory distress Gastrointestinal: normoactive bowel sounds, soft, non-tender abdomen Skin: warm Psychiatric: other (sedated) ICD10 Worksheet Patient Problems: Problems Problem Status Onset Pneumonia Acute Severe sepsis Acute Hemoptysis Acute Pneumothorax Acute
[2017-05-18] MEDS ORDERED: FUROSEMIDE 100 MG/10 ML VIAL ONE (09:29)
[2017-05-18] MEDS: FUROSEMIDE 100 MG/10 ML VIAL IVP SCH ×2 (09:30→21:38)
[2017-05-18] MEDS ORDERED: FUROSEMIDE 100 MG/10 ML VIAL IVP ONE (09:45)
[2017-05-18] MEDS: fentaNYL/NACL 100 ML IV SCH ×3 (10:12→23:26)
[2017-05-18] MEDS ORDERED: MAGNESIUM HYDROXIDE 30 ML UDCUP PO PRN (10:52)
[2017-05-18] MEDS ORDERED: POLYETHYLENE GLYCOL 3350 17 GM PKT PO PRN (10:52)
[2017-05-18] MEDS ORDERED: BISACODYL 10 MG SUPP PR PRN (10:52)
[2017-05-18] MEDS ORDERED: LACTULOSE 20 GM/30 ML UDCUP PO PRN (10:52)
--- NOTE | 2017-05-18 16:59 | PCMIDPN ---
Assessment/Plan: Assessment/Plan: * Bilateral severe pneumonia: Status post bronchoscopy yesterday with operative findings showing scattered bloody mucus plugging. Cultures are pending from BAL including Legionella culture. Will continue empiric vancomycin and levofloxacin. Multiple rheumatologic serologies are negative to date. Multiple infectious serologies are currently pending. Plans for diuresis as outlined by Dr. Zimmerman. 05/18/17 16:56 Subjective: Intubated, sedated. Objective: Vital Signs Temp Pulse Resp BP Pulse Ox 37.2 C 109 H 19 136/7 H 92 05/18/17 16:00 05/18/17 16:00 05/18/17 16:00 05/18/17 16:00 05/18/17 16:00 Microbiology 05/17/17 14:50 Mycobacterial Smear (KEYA) - Final Lung Bilateral - Bronchial Washings 05/17/17 14:49 Gram Stain - Final Lung Bilateral - Bronchial Washings Laboratory Results 05/18/17 03:50 05/18/17 03:55 Vancomycin # 7 Levofloxacin # 3 (status post Zosyn and azithromycin x4 days) 05/17/17 05/18/17 05/19/17 05:59 05:59 05:59 Intake Total 3680 4528.8 Output Total 3995 2080 3250 Balance -315 2448.8 -3250 Laboratory Tests 05/14/17 05/15/17 05/16/17 14:08 13:02 15:48 Vancomycin Trough Anti-Cycl Citrul Peptide < 15.6 GROVER Screen 0.09 Proteinase 3 (PR3) < 0.2 Myeloperoxidase Ab <0.2 RODRIGUE-1 Antibody SS-A/Ro Antibody SS-B/La Antibody Complement C3 121 Complement C4 20 Tot Complement (CH50) 64 05/16/17 05/17/17 05/17/17 17:45 09:43 20:05 Vancomycin Trough 8.8 Anti-Cycl Citrul Peptide GROVER Screen Proteinase 3 (PR3) Myeloperoxidase Ab RODRIGUE-1 Antibody <0.2 SS-A/Ro Antibody <0.2 SS-B/La Antibody <0.2 Complement C3 Complement C4 Tot Complement (CH50) - Physical Exam General Appearance: non-toxic, other (Intubated sedated) EENT: ET Tube, No scleral icterus Respiratory: wheezing (Inspiratory upper lung field) Cardiac/Chest: tachycardia Extremities: No inflammation Abdomen: non-tender, No distended Skin: No embolic lesions ICD10 Worksheet Patient Problems: Problems Problem Status Onset Pneumonia Acute Severe sepsis Acute Hemoptysis Acute Pneumothorax Acute
[2017-05-18] MEDS ORDERED: SENNOSIDES/DOCUSATE SODIUM TAB PO SCH (21:00)
[2017-05-19] MEDS: LORazepam 2 MG/ML INJ IVP PRN (00:42)
[2017-05-19] MEDS: CHLORHEXIDINE GLUCONATE 15 ML UDL PO SCH ×6 (00:43→22:19)
[2017-05-19 03:32] LABS: PLATELET COUNT 177 10^3/uL (150-400)
[2017-05-19] MEDS: ALBUTEROL 200 PUFFS/18 GM MDI IH SCH ×6 (04:09→23:43)
[2017-05-19] MEDS: IPRATROPIUM HFA INHALER IH SCH ×6 (04:09→23:43)
[2017-05-19] MEDS: FUROSEMIDE 100 MG/10 ML VIAL IVP SCH (05:15)
[2017-05-19] MEDS: methylPREDNISolone SOD SUCC 125 MG/2 ML VIAL IVP SCH ×2 (05:16→11:42)
[2017-05-19] MEDS: guaiFENesin 200 MG/10 ML UDL TUBE SCH ×4 (05:17→23:48)
[2017-05-19] MEDS: fentaNYL/NACL 100 ML IV SCH ×3 (06:11→21:51)
[2017-05-19] MEDS: PROPOFOL/EMULSION 100 ML IV SCH ×5 (06:11→21:31)
[2017-05-19] MEDS: PETROLAT,WHT/MIN OIL/SOD CHL 3.5 GM OPHT.OINT EACHEYE PRN (07:41)
--- NOTE | 2017-05-19 08:28 | HOSPPROG ---
Hospitalist Progress Note Assessment/Plan: Acute hypoxemic respiratory failure 2/2 severe B/L Pneumonia - Nodular appearing CXR. BCx's neg. No orgs on sputum Cx other than santo. Volume up. -Cont diuresis, change to acetazolamide per pul -Cont Vanc + Levaquin -plan for CT in 1-2 days when more stable to further characterize lung nodules -further w/u for infectious / autoimmune etiologies per ID -bronch 04/16, no orgs on gram stain -cont IV solumedrol -may require trach Severe sepsis due to pneumonia with leukocytosis, tachypnea, tachycardia and elevated lactate -management as above ARDS -vent with lung protective strategy Volume overload - diuresed ~5L neg since yesterday, cont diuresis as above Underlying ILD with honeycombing - may be due to sheet rock/gypsum exposure -further w/u with high res CT planned -rheumatoid factor + Hypertension - likely related to volume overload, much improved today -prn IV hydralazine + diuresis Troponin elevation - suspect strain due to sepsis rather than primary cardiac event -ischemic eval when more stable Tobacco dependence Etoh abuse - no evidence for withdrawal FEN - tube feeds DVT PPLX - Lovenox Full code Dispo - cont inpt / ICU, discussed with Dr. Zimmerman, multi-disciplinary team Subjective: Respiratory status improved this am with aggressive diuresis yesterday, appears more comfortable. No longer tachypneic or tachycardic. No fevers. Excellent uop. Objective: Vital Signs Temp Pulse Resp BP Pulse Ox 36.9 C 77 26 H 87/53 L 94 05/19/17 08:00 05/19/17 08:00 05/19/17 08:00 05/19/17 08:00 05/19/17 08:00 Microbiology 05/17/17 14:50 Mycobacterial Smear (KEYA) - Final Lung Bilateral - Bronchial Washings 05/17/17 14:49 Gram Stain - Final Lung Bilateral - Bronchial Washings Laboratory Results 05/19/17 03:15 05/19/17 03:15 05/18/17 05/19/17 05/20/17 05:59 05:59 05:59 Intake Total 4528.8 3369 Output Total 2080 7000 1210 Balance 2448.8 -2009 -1210 - Physical Exam Constitutional: no apparent distress Eyes: PERRL Cardiovascular: regular rate and rhythym Respiratory: no respiratory distress, clear to auscultation (a few faint crackles, o/w ctab), other Gastrointestinal: normoactive bowel sounds, soft, non-tender abdomen Skin: warm Neurologic: other (sedated on vent) ICD10 Worksheet Patient Problems: Problems Problem Status Onset Pneumonia Acute Severe sepsis Acute Hemoptysis Acute Pneumothorax Acute
[2017-05-19] MEDS: ASPIRIN 325 MG TAB TUBE SCH (09:12)
[2017-05-19] MEDS: SENNOSIDES 17.6 MG/10 ML UDL - IF LIQUID ORDERED TUBE SCH ×2 (09:13→20:28)
[2017-05-19] MEDS: ENOXAPARIN 40 MG/0.4 ML SYR SC SCH (09:13)
[2017-05-19] MEDS: VANCOMYCIN 1.5 GM in D5W 250 ML IV SCH ×2 (09:31→20:28)
--- NOTE | 2017-05-19 09:47 | PDINTPN ---
Bibliographic Services Specialist Progress Note Assessment/Plan: Assessment: 61 M without much PMH admitted 05/10/17 with SOB, cough after failing outpatient abx and found to have severe CAP with hypoxia. He was treated with Zosyn and Vanco, with the addition of steroids the next day. He was initially treated with bipap, then changed to vapotherm, but his O2 needs continued to worsen and he required urgent intubation on 05/12/17. His BP has been acceptable but marginal, but his renal function has been fine. He also had a spontaneous pneumothorax in spring, and a chest CT showed evidence of early ILD with honeycombing- but no further workup was initiated at that time. * Acute respiratory failure with hypoxia and ARDS 2/2 CAP. Infiltrates progressed despite Vanco/Zosyn and steroids. Changed to Levo/Vanco 05/16/17. On lung protective strategy with TV 6 ml/kg IBW and high RR. Sedation adequate on propofol and fentanyl, with PRN Ativan. Continue usual precautions including DVT and GI prophylaxis. * CAP- Currently no organisms identified, Chela on bronch wash. Procalcitonin low for bacterial infection. Steroids added 2/2 severity of disease. Legionella , RSV, Strep negative. WBC down a bit today. * ILD- this has not been yet flushed out, but the honeycomb changes on his CT from 07/31/16 may have been related to sheet rock and gypsum exposure in the past. This will require work-up once the current issue resolved (e.g. PFTs, new HRCT, additional history gathering). CAR PORTER, LIP, NSIP are also possibilities. RF (+), but CCP (-). ANCA, complement, and serologies for DM/PM all (-). Awaiting IgG subsets, SPEP. On steroids. * Nutrition: On TF @ goal. * Metabolic alkalosis: Due to diuresis started yesterday after days of (+) fluid balance. Plan: Follow CXR, ABG/VBG. Change to Diamox today. Continue antibiotics, steroids, TF. Probably check CT Chest after diuresis for another 24-48 hours, then consider VATS/trach if not improving and no diagnosis. 05/19/17 09:58 Subjective: Intubated, sedated. Objective: Vital Signs Temp Pulse Resp BP Pulse Ox 36.9 C 77 26 H 87/53 L 94 05/19/17 08:00 05/19/17 08:00 05/19/17 08:00 05/19/17 08:00 05/19/17 08:00 Microbiology 05/17/17 14:50 Mycobacterial Smear (KEYA) - Final Lung Bilateral - Bronchial Washings 05/17/17 14:49 Gram Stain - Final Lung Bilateral - Bronchial Washings Laboratory Results 05/19/17 03:15 05/19/17 03:15 05/18/17 05/19/17 05/20/17 05:59 05:59 05:59 Intake Total 4528.8 3369 Output Total 2080 7000 1210 Balance 2448.8 -3631 -1210 Laboratory Tests 05/16/17 05/16/17 05/17/17 15:48 17:45 09:43 Proteinase 3 (PR3) < 0.2 Myeloperoxidase Ab <0.2 RODRIGUE-1 Antibody <0.2 SS-A/Ro Antibody <0.2 SS-B/La Antibody <0.2 CXR: Little change in infiltrates, which demonstrate some nodular/mass-like components. Images reviewed by me. Laboratory Tests 05/18/17 20:36 POC pH 7.51 H POC pCO2 56 H POC HCO3 44 H POC Total CO2 46 H* Physical Exam - Physical Exam General Appearance: alert, no apparent distress EENT: normal ENT inspection Neck: normal inspection Respiratory: lungs clear, normal breath sounds Cardiac/Chest: normal peripheral pulses, regular rate, rhythm, edema Abdomen: normal bowel sounds, non-tender, No soft Skin: normal color, warm/dry Extremities: normal inspection Neuro/Psych: normal mood/affect, oriented x 3, No alert ICD10 Worksheet Patient Problems: Problems Problem Status Onset Pneumonia Acute Severe sepsis Acute Hemoptysis Acute Pneumothorax Acute
[2017-05-19] MEDS: acetaZOLAMIDE 500 MG in SYRINGE 0 ML IVP SCH ×2 (10:26→20:29)
--- NOTE | 2017-05-19 10:41 | PCMIDPN ---
Assessment/Plan: Assessment/Plan: * Bilateral severe pneumonia: BAL cultures only with growth of Chela. No defined etiology for severe pneumonia. Agree with plans for CT scan to further characterize pulmonary infiltrates. Continue empiric vancomycin and levofloxacin. Will complete total 10 days of vancomycin (# 8/10). Await multiple serologic studies and Legionella culture. 05/19/17 10:38 Subjective: Intubated, sedated. FiO2 able to be decreased with diuresis to 70%. Objective: Vital Signs Temp Pulse Resp BP Pulse Ox 37.3 C 112 H 26 H 118/63 94 05/19/17 10:00 05/19/17 10:00 05/19/17 10:00 05/19/17 10:00 05/19/17 10:00 Microbiology 05/17/17 14:50 Mycobacterial Smear (KEYA) - Final Lung Bilateral - Bronchial Washings 05/17/17 14:49 Gram Stain - Final Lung Bilateral - Bronchial Washings Laboratory Results 05/19/17 03:15 05/19/17 03:15 05/18/17 05/19/17 05/20/17 05:59 05:59 05:59 Intake Total 4528.8 3369 Output Total 2080 7000 1460 Balance 2448.8 -3631 -1460 Vancomycin # 8 Levofloxacin # 4 Cultures with Chela Chest x-ray bilateral infiltrates with nodular character - Physical Exam General Appearance: alert, no apparent distress EENT: ET Tube, other (Mild right-sided conjunctival injection), No scleral icterus Respiratory: wheezing (Inspiratory bilateral upper lung benitez) Cardiac/Chest: tachycardia, No systolic murmur Extremities: No inflammation Abdomen: non-tender, No distended ICD10 Worksheet Patient Problems: Problems Problem Status Onset Pneumonia Acute Severe sepsis Acute Hemoptysis Acute Pneumothorax Acute
[2017-05-19] MEDS: ACETAMINOPHEN 650 MG/20.3 ML UDCUP TUBE PRN (21:38)
[2017-05-20] MEDS: LORazepam 2 MG/ML INJ IVP PRN (00:08)
[2017-05-20] MEDS: CHLORHEXIDINE GLUCONATE 15 ML UDL PO SCH ×6 (03:18→20:57)
[2017-05-20] MEDS: IPRATROPIUM HFA INHALER IH SCH ×5 (04:16→20:18)
[2017-05-20] MEDS: ALBUTEROL 200 PUFFS/18 GM MDI IH SCH ×5 (04:16→20:18)
[2017-05-20 04:33] LABS: PLATELET COUNT 248 10^3/uL (150-400)
[2017-05-20] MEDS: PROPOFOL/EMULSION 100 ML IV SCH ×6 (05:32→22:24)
[2017-05-20] MEDS: guaiFENesin 200 MG/10 ML UDL TUBE SCH ×3 (05:32→17:53)
[2017-05-20] MEDS: FUROSEMIDE 20 MG/2 ML VIAL IVP SCH ×2 (07:39→15:45)
[2017-05-20] MEDS: fentaNYL/NACL 100 ML IV SCH ×2 (07:42→17:14)
[2017-05-20] MEDS: ENOXAPARIN 40 MG/0.4 ML SYR SC SCH (08:47)
[2017-05-20] MEDS: methylPREDNISolone SOD SUCC 125 MG/2 ML VIAL IVP SCH (08:49)
[2017-05-20] MEDS: SENNOSIDES 17.6 MG/10 ML UDL - IF LIQUID ORDERED TUBE SCH ×2 (08:55→20:58)
[2017-05-20] MEDS: ASPIRIN 325 MG TAB TUBE SCH (08:55)
--- NOTE | 2017-05-20 09:05 | PDINTPN ---
Software Configuration Manager Progress Note Assessment/Plan: Assessment: 61 M without much PMH admitted 05/10/17 with SOB, cough after failing outpatient abx and found to have severe CAP with hypoxia. He was treated with Zosyn and Vanco, with the addition of steroids the next day. He was initially treated with bipap, then changed to vapotherm, but his O2 needs continued to worsen and he required urgent intubation on 05/12/17. His BP has been acceptable but marginal, but his renal function has been fine. He also had a spontaneous pneumothorax in spring, and a chest CT showed evidence of early ILD with honeycombing- but no further workup was initiated at that time. * Acute respiratory failure with hypoxia and ARDS 2/2 CAP. Infiltrates progressed despite Vanco/Zosyn and steroids. Changed to Levo/Vanco 05/16/17. On lung protective strategy with TV 6 ml/kg IBW and high RR. Sedation adequate on propofol and fentanyl, with PRN Ativan. * CAP- Currently no organisms identified, Chela on bronch wash. Procalcitonin low for bacterial infection. Steroids added 2/2 severity of disease. Legionella , RSV, Strep negative. WBC increased today, ? steroids. * ILD- Hx of subpleural honeycombing on his CT from 07/31/16 may have been related to sheet rock and gypsum exposure in the past. This will require work- up once the current issue resolved (e.g. PFTs, new HRCT, additional history gathering). LIQUID COMPOUNDER, LIP, NSIP are also possibilities. RF (+), but CCP (-). ANCA, complement, and serologies for DM/PM all (-). Awaiting IgG subsets, SPEP. On steroids. * COPD - Hx of sig tob abuse, emphysema on CT chest from July 2016. On BD therapies, solumedrol. * Nutrition: On TFs @ goal. * Metabolic alkalosis: Due to diuresis after days of (+) fluid balance. Good UOP last 2 days. * Prophylaxis - On enoxaparin, GI - none indicated, on gastric TFs Plan: Follow CXR, ABG. Continue supportive care, antibiotics, steroids, diuresis , TFs. Check CT Chest tomorrow. Consider repeat bronchoscopy today or tomorrow to assess airways and remove possible residual plugs. Consider VATS/trach at 14 days vent if still not improving and no diagnosis. 50 minutes CC time spent directly with patient, Radiologic studies personally reviewed. Discusssed with ID, Nursing, RT and the ICU MD Team. Objective: Vital Signs Temp Pulse Resp BP Pulse Ox 37.3 C 98 24 H 147/83 H 90 L 05/20/17 08:00 05/20/17 08:14 05/20/17 08:14 05/20/17 08:00 05/20/17 08:14 Microbiology 05/17/17 14:49 Gram Stain - Final Lung Bilateral - Bronchial Washings Laboratory Results 05/20/17 04:10 05/20/17 04:10 05/19/17 05/20/17 05/21/17 05:59 05:59 05:59 Intake Total 3369 3162 Output Total 700 6090 925 [facility] -3631 -2928 -925 Laboratory Tests 05/20/17 05/20/17 04:10 04:10 pCO2 55 H pO2 76 H ABG pH 7.32 L ABG HCO3 28 H O2 Concentration % 60 Actual Respiration Rate 26 SIMV YES Tidal Volume 520 PEEP 10 Pressure Support 15 Albumin 2.8 L CXR: Bilateral infiltrates, unchanged compared to the last 2 days but less dense than x-rays at the time of intubation. Lines and tubes in good position. Physical Exam - Physical Exam General Appearance: other (Sedated, on the ventilator), No alert EENT: PERRL/EOMI, tonsillar exudate, other (NG tube in place) Neck: normal inspection (No obvious JVD) Respiratory: decreased breath sounds (Coarse bilaterally), rales (Rales at the posterior lateral bases), rhonchi (Few) Cardiac/Chest: regular rate, rhythm Abdomen: normal bowel sounds, non-tender, soft, other (Tolerating tube feeding) Male Genitalia: other (Arias catheter in place, good urine output last 48 hr) Skin: warm/dry Extremities: No pedal edema Neuro/Psych: no motor/sensory deficits (Moves extremities weakly to stimulation) , cognition abnormalities (Cannot assess) ICD10 Worksheet Patient Problems: Problems Problem Status Onset Pneumothorax Acute Hemoptysis Acute Severe sepsis Acute Pneumonia Acute
[2017-05-20] MEDS: VANCOMYCIN 1.5 GM in D5W 250 ML IV SCH ×2 (09:09→20:58)
--- NOTE | 2017-05-20 10:51 | PCMIDPN ---
Assessment/Plan: Assessment/Plan: * Bilateral severe pneumonia: BAL cultures only with growth of Chela. FiO2 increased again today. Continue vancomycin and levofloxacin with plans to stop vancomycin tomorrow at day 10. Further evaluation was chest CT planned. Agree with plans for possible repeat bronchoscopy and possible need for VATS to further define etiology although diagnostic yield may be limited in the setting of antibiotic and steroid therapy. * Leukocytosis: White blood cell increased which may in part be related to corticosteroid therapy. Continue to follow. If continues to increase or associated with fever, then will need to repeat blood cultures to ensure no evidence of line-related infection. 05/20/17 10:48 05/20/17 10:50 05/20/17 10:53 Subjective: Intubated, sedated. FiO2 increased to 70% this a.m.. Objective: Vital Signs Temp Pulse Resp BP Pulse Ox 37.4 C 101 H 26 H 128/80 H 91 L 05/20/17 10:00 05/20/17 10:00 05/20/17 10:00 05/20/17 10:00 05/20/17 10:00 Microbiology 05/17/17 14:49 Gram Stain - Final Lung Bilateral - Bronchial Washings Laboratory Results 05/20/17 04:10 05/20/17 04:10 05/19/17 05/20/17 05/21/17 05:59 05:59 05:59 Intake Total 3369 3162 Output Total 7000 6090 1925 [facility] -3631 -2928 -1925 Vancomycin # 9/10 Levofloxacin # 5 Laboratory Tests 05/17/17 05/17/17 05/17/17 03:45 14:55 14:55 Coccidioides Ab (CF) Pending Cryptococcus Ag Screen Pending F. tularensis Titer Pending Hantavirus IgG Ab Pending Legionella Culture Pending Pneumocyst carinii Smear Pending - Physical Exam General Appearance: non-toxic, other (Intubated, sedated) EENT: ET Tube, other (Mild bilateral conjunctival injection) Respiratory: lungs clear, respiratory distress (Increased respiratory effort present) Cardiac/Chest: tachycardia, No systolic murmur Extremities: No inflammation Abdomen: non-tender, No distended Skin: No rash ICD10 Worksheet Patient Problems: Problems Problem Status Onset Pneumonia Acute Severe sepsis Acute Hemoptysis Acute Pneumothorax Acute
--- NOTE | 2017-05-20 12:25 | HOSPPROG ---
Hospitalist Progress Note Assessment/Plan: 61 y/o male new to my care 05/20/17 with: Acute hypoxemic respiratory failure 2/2 severe B/L Pneumonia (still on vent) -Cont Vanc + Levaquin (plan to stop vanco ) -plan for CT in 1-2 days when more stable to further characterize lung nodules -further w/u for infectious / autoimmune etiologies per ID -bronch 04/16, no orgs on gram stain -cont IV solumedrol -may require trach Severe sepsis due to pneumonia with leukocytosis, tachypnea, tachycardia and elevated lactate -management as above ARDS -vent with lung protective strategy Volume overload - diuresed ~5L neg since yesterday, cont diuresis as above Underlying ILD with honeycombing - may be due to sheet rock/gypsum exposure -further w/u with high res CT planned -rheumatoid factor + Hypertension - likely related to volume overload, much improved today -prn IV hydralazine + diuresis Troponin elevation - suspect strain due to sepsis rather than primary cardiac event -ischemic eval when more stable Tobacco dependence Etoh abuse - no evidence for withdrawal FEN - tube feeds DVT PPLX - Lovenox Full code Dispo - cont inpt / ICU, discussed with Dr. Russell, multi-disciplinary team, may need trach Subjective: intubated and sedated Objective: Vital Signs Temp Pulse Resp BP Pulse Ox 37.4 C 98 33 H 128/80 H 92 05/20/17 10:00 05/20/17 11:57 05/20/17 11:57 05/20/17 10:00 05/20/17 11:57 Microbiology 05/17/17 14:49 Gram Stain - Final Lung Bilateral - Bronchial Washings Laboratory Results 05/20/17 04:10 05/20/17 04:10 05/19/17 05/20/17 05/21/17 05:59 05:59 05:59 Intake Total 6149 3162 Output Total 6300 2353 9219 Balance -7612 -8880 -0389 - Physical Exam Constitutional: no apparent distress, not in pain, chronically ill appearing Eyes: PERRL, anicteric sclera Ears, Nose, Mouth, Throat: other (ET tueb in place) Cardiovascular: regular rate and rhythym, no murmur, rub, or gallop, No JVD, No edema Respiratory: no respiratory distress, no rales or rhonchi, clear to auscultation Gastrointestinal: normoactive bowel sounds, soft, non-tender abdomen, no palpable masses Genitourinary: no bladder fullness, no bladder tenderness, sherman in urethra Skin: no rashes or abrasions, no fluctuance, no induration Neurologic: other (intubated and sedated) ICD10 Worksheet Patient Problems: Problems Problem Status Onset Pneumothorax Acute Hemoptysis Acute Severe sepsis Acute Pneumonia Acute
[2017-05-20] MEDS: MAGNESIUM HYDROXIDE 30 ML UDCUP TUBE PRN (15:54)
--- NOTE | 2017-05-20 18:06 | ASMTCMCOM ---
CM Note CM Note Notes: Patient's brother Jeancarlos is here from [place]. Seems overwhelmed trying to get bills paid for patient. Their sister sent e-mail w/MPOA and Financial POA for Jeancarlos. MPOA paperwork and Adv Directive in chart. Jeancarlos reports that brother's recently and also his dog. He states that patient hasn't been taking care of himself, seemed depressed with not much to live for. Patient doesn't have ins, will ask the Medicaid Specialist to talk w/Jeancarlos. CM to follow. Date Signed: 05/20/2017 06:05 PM Electronically Signed By:Johnna Morales LCSW
[2017-05-21] MEDS: ALBUTEROL 200 PUFFS/18 GM MDI IH SCH ×7 (00:04→23:53)
[2017-05-21] MEDS: IPRATROPIUM HFA INHALER IH SCH ×7 (00:04→23:53)
[2017-05-21] MEDS: CHLORHEXIDINE GLUCONATE 15 ML UDL PO SCH ×6 (02:11→21:46)
[2017-05-21] MEDS: PROPOFOL/EMULSION 100 ML IV SCH ×6 (02:11→23:29)
[2017-05-21] MEDS: fentaNYL/NACL 100 ML IV SCH ×3 (02:12→18:30)
[2017-05-21] MEDS: guaiFENesin 200 MG/10 ML UDL TUBE SCH ×5 (05:18→23:56)
[2017-05-21 05:24] LABS: PLATELET COUNT 269 10^3/uL (150-400)
[2017-05-21] MEDS: VANCOMYCIN 1.5 GM in D5W 250 ML IV SCH (09:05)
[2017-05-21] MEDS: FUROSEMIDE 20 MG/2 ML VIAL IVP SCH ×2 (09:54)
[2017-05-21] MEDS: SENNOSIDES 17.6 MG/10 ML UDL - IF LIQUID ORDERED TUBE SCH ×2 (09:57→21:37)
[2017-05-21] MEDS: methylPREDNISolone SOD SUCC 125 MG/2 ML VIAL IVP SCH (09:58)
[2017-05-21] MEDS: ENOXAPARIN 40 MG/0.4 ML SYR SC SCH (09:58)
[2017-05-21] MEDS: ASPIRIN 325 MG TAB TUBE SCH (09:58)
--- NOTE | 2017-05-21 10:17 | PCMIDPN ---
Assessment/Plan: Assessment/Plan: 1. Bilateral Severe Pneumonia: - Currently on VAnco + levaquin. - Also on steroids - BAl only with Chela so far. - CXR images reviewed today. STill with significant b/l infiltrates. - For CT chest today and f/u bronch as well - Care coordinated and discussed with intensitivist and RN. -d/c vanco today given no resistant GPC identified thus far and has had about 11 days of therapy -continue levaquin for now. - f/u on repeat bronch cultures. 2. Leukocytosis: - likely mulitfactorial (related to #1, steroids etc) -will continue to monitor Meds vanco 1.5gm q12- (has been on vanco since 05/11/17)--#11 levaquin 750mg daily- 05/18/17--#4 steroids 60mg daily (previously on 60mg q6 from 05/18-05/20) s/p zosyn 05/11-05/16/17- #6 s/p azithro 05/11/17- 05/16/17- #6 Subjective: First time seeing pateint. records reviewed. Discussed with Rn. Remains in icu, intubated, sedated. Intermittently opens eyes with verbal commands. diaphoretic. FIO2 at 70%. Objective: Vital Signs Temp Pulse Resp BP Pulse Ox 37.4 C 94 17 105/61 90 L 05/21/17 08:33 05/21/17 08:33 05/21/17 08:33 05/21/17 08:00 05/21/17 08:33 Microbiology 05/17/17 14:49 Gram Stain - Final Lung Bilateral - Bronchial Washings Laboratory Results 05/21/17 05:10 05/21/17 05:10 05/20/17 05/21/17 05/22/17 05:59 05:59 05:59 Intake Total 1193 4390 Output Total 1600 5983 Balance -5926 -9431 - Physical Exam General Appearance: other (intubated, sedated in icu) EENT: ET Tube Respiratory: coarse breath sounds (bilaterally) Cardiac/Chest: regular rate, rhythm Extremities: other (picc line), No swelling Abdomen: normal bowel sounds, non-tender, soft, No distended Male Genitalia: sherman Skin: No erythema - Time Spent With Patient Time Spent with Patient: greater than 35 minutes Time Spent with Patient: Greater than 35 minutes spent on this patients care, greater than 50% of time spent counseling, educating, and coordinating care regarding the above mentioned plan. ICD10 Worksheet Patient Problems: Problems Problem Status Onset Pneumonia Acute Severe sepsis Acute Hemoptysis Acute Pneumothorax Acute
--- NOTE | 2017-05-21 11:03 | PDINTPN ---
Sales Development Consultant Progress Note Assessment/Plan: Assessment: 61 M without much PMH admitted 05/10/17 with SOB, cough after failing outpatient abx and found to have severe CAP with hypoxia. He was treated with Zosyn and Vanco, with the addition of steroids the next day. He was initially treated with bipap, then changed to vapotherm, but his O2 needs continued to worsen and he required urgent intubation on 05/12/17. His BP has been acceptable but marginal, but his renal function has been fine. He also had a spontaneous pneumothorax in spring, and a chest CT showed evidence of early ILD with honeycombing- but no further workup was initiated at that time. * Acute respiratory failure with hypoxia and ARDS 2/2 CAP. Infiltrates progressed despite Vanco/Zosyn and steroids. Changed to Levo/Vanco 05/16/17. On levofloxacin alone now. On lung protective strategy with TV 6 ml/kg IBW and high RR. Sedation adequate on propofol and fentanyl, with PRN Ativan. Sedation vacation on a daily basis is indicated. * CAP- Currently no organisms identified, Chela on bronch wash. Procalcitonin low for bacterial infection. Steroids added 2/2 severity of disease. Legionella , RSV, Strep negative. WBC increased, ? steroids. * ILD- Hx of subpleural honeycombing on his CT from 07/31/16 may have been related to sheet rock and gypsum exposure in the past. This will require work- up once the current issue resolved (e.g. PFTs, new HRCT, additional history gathering). FORMATION TESTING OPERATOR, LIP, NSIP are also possibilities. RF (+), but CCP (-). ANCA, complement, and serologies for DM/PM all (-). IgG subsets OK, PCP negative. On steroids. * COPD - Hx of sig tob abuse, emphysema on CT chest from July 2016. On BD therapies, solumedrol. * Nutrition: On TFs @ goal. * Respiratory acidosis/Metabolic alkalosis: Good UOP last 3 days. BUN higher today, will follow. * Prophylaxis - On enoxaparin, GI - none indicated: on gastric TFs Plan: Follow CXR, ABG. Continue supportive care, antibiotics, steroids, diuresis , TFs. CT Chest today. Repeat bronchoscopy today after CT to assess airways and remove possible residual plugs. Will discuss the need for a tracheostomy and a PEG tube with the patient's brother today. Lung biopsy will be considered but an unusual inflammatory process seems unlikely and he is being treated for this with steroids. 45 minutes CC time spent directly with patient, Discussed with ID, Nursing, RT and the ICU MD Team. Subjective: Sedated, not responding, moves extremities weakly at times. Appears relatively comfortable but thin, ill. Objective: Vital Signs Temp Pulse Resp BP Pulse Ox 37.4 C 95 20 126/68 H 91 L 05/21/17 08:33 05/21/17 10:00 05/21/17 10:00 05/21/17 10:00 05/21/17 10:00 Microbiology 05/17/17 14:49 Gram Stain - Final Lung Bilateral - Bronchial Washings Laboratory Results 05/21/17 05:10 05/21/17 05:10 05/20/17 05/21/17 05/22/17 05:59 05:59 05:59 Intake Total 3168 4532 Output Total 6090 5625 225 [facility] -2928 -2403 -225 Laboratory Tests 05/21/17 05/21/17 05:10 06:18 pCO2 55 H pO2 93 H ABG pH 7.35 ABG O2 Saturation 97 H O2 Concentration % 70 Set Respiration Rate 28 SIMV YES Tidal Volume 520 PEEP 10 Pressure Support 15 Calcium 9.2 Magnesium 2.6 H CXR: Infiltrates may be a bit social media job titles, but otherwise unchanged. Lines and tubes are in good position. Physical Exam - Physical Exam General Appearance: mild distress (Static Ng breasts.), obtunded (Sedated), thin EENT: PERRL/EOMI Neck: normal inspection (No JVD) Respiratory: lungs clear (Anteriorly) Cardiac/Chest: regular rate, rhythm, systolic murmur (Soft, consistent with a flow murmur) Abdomen: normal bowel sounds, non-tender, soft, other (Tolerating tube feedings at goal) Male Genitalia: other (Arias catheter in place, good urine output.) Skin: normal color, warm/dry Extremities: No pedal edema Neuro/Psych: no motor/sensory deficits (Moves all extremities at times), cognition abnormalities (Cannot assess) ICD10 Worksheet Patient Problems: Problems Problem Status Onset Pneumothorax Acute Hemoptysis Acute Severe sepsis Acute Pneumonia Acute
[2017-05-21] MEDS ORDERED: IOPAMIDOL (ISOVUE-300) 100 ML BTL ONE (11:26)
[2017-05-21] MEDS: ACETAMINOPHEN 650 MG/20.3 ML UDCUP TUBE PRN (13:09)
[2017-05-21] MEDS ORDERED: ALBUMIN 5% 500 ML IV ONE ×2 (14:10→16:13)
--- NOTE | 2017-05-21 14:22 | HOSPPROG ---
Hospitalist Progress Note Assessment/Plan: 61 y/o male new to my care 05/20/17 with: Acute hypoxemic respiratory failure 2/2 severe B/L Pneumonia (still on vent) -[facility] -await CT to further characterize lung nodules -further w/u for infectious / autoimmune etiologies per ID -bronch 04/16, no orgs on gram stain.; repeat bronch is pending -cont IV solumedrol -may require trach Severe sepsis due to pneumonia with leukocytosis, tachypnea, tachycardia and elevated lactate -management as above ARDS -vent with lung protective strategy Volume overload - diuresed ~5L neg since yesterday, cont diuresis as above Underlying ILD with honeycombing - may be due to sheet rock/gypsum exposure -further w/u with high res CT planned -rheumatoid factor + -consider lung biopsy Hypertension - likely related to volume overload, much improved today -prn IV hydralazine + diuresis Troponin elevation - suspect strain due to sepsis rather than primary cardiac event -ischemic eval when more stable Tobacco dependence Etoh abuse - no evidence for withdrawal FEN - tube feeds DVT PPLX - Lovenox Full code Dispo - cont inpt / ICU, discussed with Dr. Russell, multi-disciplinary team, may need trach after if unable to wean from vent after 14 days trail sedation vacations Subjective: intubated and sedated Objective: Vital Signs Temp Pulse Resp BP Pulse Ox 37.6 C 99 30 H 73/52 L 95 05/21/17 14:00 05/21/17 14:00 05/21/17 14:00 05/21/17 14:00 05/21/17 14:00 Microbiology 05/17/17 14:50 Mycobacterial Smear (KEYA) - Final Lung Bilateral - Bronchial Washings 05/17/17 14:49 Gram Stain - Final Lung Bilateral - Bronchial Washings Laboratory Results 05/21/17 05:10 05/21/17 05:10 05/20/17 05/21/17 05/22/17 05:59 05:59 05:59 Intake Total 3169 9591 Output Total 9621 8183 403 Balance -0937 -5732 -981 - Physical Exam Constitutional: no apparent distress, appears nourished, not in pain Ears, Nose, Mouth, Throat: other (et tube inplace) Cardiovascular: regular rate and rhythym, no murmur, rub, or gallop Respiratory: no respiratory distress, no rales or rhonchi, clear to auscultation , No inspiratory crackles Gastrointestinal: normoactive bowel sounds, soft, non-tender abdomen, no palpable masses Genitourinary: sherman in urethra Skin: no rashes or abrasions, no fluctuance, no induration ICD10 Worksheet Patient Problems: Problems Problem Status Onset Pneumothorax Acute Hemoptysis Acute Severe sepsis Acute Pneumonia Acute
[2017-05-21] MEDS ORDERED: LIDOCAINE 1% 300 MG/30 ML SDV ONE ×2 (14:58→15:24)
[2017-05-21] MEDS ORDERED: LIDOCAINE 2% JELLY 5 ML TUBE ONE (14:58)
--- NOTE | 2017-05-21 15:00 | ASMTCMCOM ---
CM Note CM Note Notes: Left message for Patient's brother, Jeancarlos [phone], that Dr. Russell wanted to meet with him. [facility] [employer] has also located patient's SS# which was needed by brother for financial needs. Gave Jeancarlos's # to Casandra to assist brother w/possible Medicaid application. Date Signed: 05/21/2017 02:59 PM Electronically Signed By:Johnna Morales LCSW
[2017-05-21] MEDS ORDERED: MIDAZOLAM 2 MG/2 ML VIAL IVP ONE ×2 (15:15→15:25)
[2017-05-21] MEDS ORDERED: MIDAZOLAM 2 MG/2 ML VIAL ONE (15:15)
[2017-05-21 16:00] LABS: FRANCISELLA (TULAREMIA) AB 1:20
[2017-05-21] MEDS ORDERED: LIDOCAINE 1% 300 MG/30 ML SDV IF ONE (16:15)
[2017-05-21] MEDS ORDERED: LIDOCAINE 2% JELLY 5 ML TUBE TP ONE (16:15)
[2017-05-21] MEDS: FLUCONAZOLE/NaCl 100 ML IV SCH (16:35)
--- NOTE | 2017-05-21 18:17 | GPN ---
[f rep st] PROCEDURE NOTE PROCEDURE PERFORMED: Bronchoscopy with transbronchial biopsies. INDICATION: Persistent respiratory failure with nodular pulmonary infiltrates suggesting the possibility of malignancy versus nodular infection. PROCEDURE NOTE: The procedure was performed in the intensive care unit. Informed consent was obtained from the patient's brother. Appropriate time-out was performed. 2 mg of IV Versed were used for additional sedation. The patient was on propofol and fentanyl per ventilatory protocols. Approximately 20 cc of 1% lidocaine was used for topical anesthesia of the airways. The fiberoptic bronchoscope was passed via an adapter on the end of the patient' s endotracheal tube and into the distal trachea, and from there into the lower tracheobronchial tree bilaterally. All areas were observed to at least the subsegmental level. Anatomy was normal bilaterally. There were no endobronchial lesions. There was no evidence of extrinsic compression. There were mild to moderate secretions found bilaterally, somewhat purulent. There were no mucus plugs per se. Washes were taken from both sides and combined. [place] biopsy samples were taken from the endobronchium of the right lower lobe, right middle lobe and lingula. Following this, 4 transbronchial biopsies were taken from the right lower lobe. Bleeding was minimal. There were no complications. A chest x-ray is pending at the time of this dictation. Breath sounds were good and equal bilaterally at the end of the procedure. Oxygen saturations on 100% oxygen and vital signs remained stable throughout the procedure. IMPRESSIONS: 1. Normal endobronchium with mild to moderate secretions as outlined above. No mucus plugs. 2. Nodular pulmonary infiltrate. Query etiology. Malignancy needs to be excluded. Other possibilities include a nodular pneumonia, fungal lesions, endocarditis, etc. Appropriate samples were sent to the laboratory for full cultures, cytologies and pathology. /[id number]/MODL MTDD
[2017-05-21] MEDS ORDERED: NOREPINEPHRINE/NS 500 ML IV PRN (18:50)
[2017-05-21] MEDS ORDERED: NS 1,000 ML IV SCH (18:50)
[2017-05-21] MEDS ORDERED: NS 500 ML IV ONE ×2 (19:00→19:30)
[2017-05-21] MEDS: PETROLAT,WHT/MIN OIL/SOD CHL 3.5 GM OPHT.OINT EACHEYE PRN (21:00)
[2017-05-21] MEDS ORDERED: ALBUMIN 5% 500 ML IV PRN (21:10)
[2017-05-21] MEDS: LORazepam 2 MG/ML INJ IVP PRN (22:08)
[2017-05-22] MEDS: CHLORHEXIDINE GLUCONATE 15 ML UDL PO SCH ×6 (01:38→21:16)
[2017-05-22] MEDS: PROPOFOL/EMULSION 100 ML IV SCH ×5 (03:34→22:25)
[2017-05-22] MEDS: fentaNYL/NACL 100 ML IV SCH ×3 (03:34→22:24)
[2017-05-22] MEDS: IPRATROPIUM HFA INHALER IH SCH ×6 (04:16→20:07)
[2017-05-22] MEDS: ALBUTEROL 200 PUFFS/18 GM MDI IH SCH ×5 (04:17→20:08)
[2017-05-22] MEDS: LORazepam 2 MG/ML INJ IVP PRN ×3 (04:28→22:57)
[2017-05-22 06:22] LABS: PLATELET COUNT 246 10^3/uL (150-400)
[2017-05-22] MEDS: guaiFENesin 200 MG/10 ML UDL TUBE SCH ×4 (06:36→23:03)
[2017-05-22] MEDS: ASPIRIN 325 MG TAB TUBE SCH (09:02)
[2017-05-22] MEDS: ENOXAPARIN 40 MG/0.4 ML SYR SC SCH (09:02)
[2017-05-22] MEDS: methylPREDNISolone SOD SUCC 125 MG/2 ML VIAL IVP SCH (09:02)
[2017-05-22] MEDS: SENNOSIDES 17.6 MG/10 ML UDL - IF LIQUID ORDERED TUBE SCH ×2 (09:04→21:15)
[2017-05-22] MEDS: FLUCONAZOLE/NaCl 100 ML IV SCH (09:04)
--- NOTE | 2017-05-22 10:35 | PCMIDPN ---
Assessment/Plan: Assessment/Plan: * Bilateral severe pneumonia: BAL cultures only with growth of Chela. CT of chest with bilateral nodular lesions concerning for malignancy with less likely etiology being infectious. Serologies for Coccidioidomycosis remain pending. Transbronchial biopsy performed yesterday. No bacteria isolated to date. Continue levofloxacin pending biopsy findings. Suspect tularemia antibody of 1: 20 does not represent true positive as would expect titer to be significantly higher if this were all due to tularemia. * Leukocytosis: Suspect multifactorial with severe illness and corticosteroids as contributors. 05/22/17 10:31 05/22/17 10:36 Subjective: Intubated, sedated. Objective: Vital Signs Temp Pulse Resp BP Pulse Ox 37.4 C 93 20 111/65 92 05/22/17 06:00 05/22/17 10:00 05/22/17 10:00 05/22/17 10:00 05/22/17 10:00 Microbiology 05/17/17 14:49 Gram Stain - Final Lung Bilateral - Bronchial Washings 05/17/17 14:50 Mycobacterial Smear (KEYA) - Final Lung Bilateral - Bronchial Washings Laboratory Results 05/22/17 06:05 05/22/17 06:05 05/21/17 05/22/17 05/23/17 05:59 05:59 05:59 Intake Total 3222 4641 Output Total 5645 2300 Balance -2403 2341 Levofloxacin # 7 Tularemia antibody 1:20 Cryptococcal antigen negative HIV antibody negative Coccidioides antibody pending BAL with growth of Chela BAL cytology negative for Pneumocystis Transbronchial biopsy pending FiO2 80% - Physical Exam General Appearance: other (Intubated, sedated) EENT: ET Tube, other (Mild bilateral conjunctival injection) Respiratory: coarse breath sounds, other (Increased respiratory effort) Cardiac/Chest: regular rate, rhythm, No systolic murmur Extremities: No pedal edema Abdomen: non-tender, No distended ICD10 Worksheet Patient Problems: Problems Problem Status Onset Pneumonia Acute Severe sepsis Acute Hemoptysis Acute Pneumothorax Acute
[2017-05-22] MEDS: LACTULOSE 20 GM/30 ML UDCUP TUBE PRN (12:29)
--- NOTE | 2017-05-22 13:59 | HOSPPROG ---
Hospitalist Progress Note Assessment/Plan: 61 y/o male new to my care 05/20/17 with: Acute hypoxemic respiratory failure 2/2 severe B/L Pneumonia (still on vent) CT done 05/21 is concerning for metastatic lung ca -Cont Levaquin ([facility] dc'ed today 05/21/17) -await path from bronch -further w/u for infectious / autoimmune etiologies per ID -cont IV solumedrol -may require trach mild hypernatremia -change main fluids to 1/2 NS at 100cc/hr -repeat chem in am Severe sepsis due to pneumonia with leukocytosis, tachypnea, tachycardia and elevated lactate -management as above ARDS -vent with lung protective strategy Volume overload - diuresed ~5L neg since yesterday, cont diuresis as above Underlying ILD with honeycombing - may be due to sheet rock/gypsum exposure -further w/u with high res CT planned -rheumatoid factor + -consider lung biopsy Hypertension - likely related to volume overload, much improved today -prn IV hydralazine + diuresis Troponin elevation - suspect strain due to sepsis rather than primary cardiac event -ischemic eval when more stable Tobacco dependence Etoh abuse - no evidence for withdrawal FEN - tube feeds DVT PPLX - Lovenox Full code Dispo - cont inpt / ICU, discussed with Dr. Russell, multi-disciplinary team, may need trach after if unable to wean from vent after 14 days trail sedation vacations Subjective: intubated and sedated Objective: Vital Signs Temp Pulse Resp BP Pulse Ox 37.4 C 94 20 95/51 L 93 05/22/17 06:00 05/22/17 11:56 05/22/17 11:56 05/22/17 13:05 05/22/17 11:56 Microbiology 05/17/17 14:49 Gram Stain - Final Lung Bilateral - Bronchial Washings 05/17/17 14:50 Mycobacterial Smear (KEYA) - Final Lung Bilateral - Bronchial Washings Laboratory Results 05/22/17 06:05 05/22/17 06:05 05/21/17 05/22/17 05/23/17 05:59 05:59 05:59 Intake Total 3222 4641 Output Total 5610 2300 Balance -2403 2341 Impression: 1. Innumerable bilateral hypodense pulmonary nodules with the largest in the lingula. Nodules are more numerous at the lung bases posteriorly. Possibilities include metastatic disease versus numerous septic emboli. 2. Mild left pleural effusion. 3. Mildly enlarged right hilar and mediastinal lymph nodes. 4. Hypodense lesion in the dome of the liver posteriorly with additional smaller lesions suspected. These could also represent metastatic deposits versus septic emboli less likely. - Physical Exam Constitutional: chronically ill appearing Ears, Nose, Mouth, Throat: other (ET tube inplace) Cardiovascular: regular rate and rhythym, no murmur, rub, or gallop Respiratory: no respiratory distress, no rales or rhonchi, clear to auscultation Gastrointestinal: normoactive bowel sounds, soft, non-tender abdomen, no palpable masses, No guarding, No rebound Genitourinary: sherman in urethra Musculoskeletal: full muscle strength, no muscle tenderness, normal joint ROM Neurologic: other (AAOx0) Psychiatric: encephalopathic ICD10 Worksheet Patient Problems: Problems Problem Status Onset Pneumothorax Acute Hemoptysis Acute Severe sepsis Acute Pneumonia Acute
--- NOTE | 2017-05-22 18:29 | PDINTPN ---
Buckle Strap Puncher Progress Note Assessment/Plan: Assessment: 61 M without much PMH admitted 05/10/17 with SOB, cough after failing outpatient abx and found to have severe CAP with hypoxia. He was treated with Zosyn and Vanco, with the addition of steroids the next day. He was initially treated with bipap, then changed to vapotherm, but his O2 needs continued to worsen and he required urgent intubation on 05/12/17. His BP has been acceptable but marginal, but his renal function has been fine. He also had a spontaneous pneumothorax in spring, and a chest CT showed evidence of early ILD with honeycombing- but no further workup was initiated at that time. * Acute respiratory failure with hypoxia and ARDS 2/2 CAP. Infiltrates progressed despite Vanco/Zosyn and steroids. Changed to Levo/Vanco 05/16/17. On levofloxacin alone now. On lung protective strategy with TV 6 ml/kg IBW and high RR. Sedation adequate on propofol and fentanyl, with PRN Ativan. Sedation vacation on a daily basis is indicated. * CAP- Currently no organisms identified, Chela on bronch wash. Procalcitonin low for bacterial infection. Steroids added 2/2 severity of disease. Legionella , RSV, Strep negative. WBC increased, ? steroids. * Multiple lung nodules/masses. CT scan suggests malignancy. Biopsies yesterday are negative. I will consider re-biopsy tomorrow under fluoroscopy verses sending the patient to CT for a percutaneous guided biopsy if this can be done safely. Will discuss with Radiology in the a.m.. * ILD- Hx of subpleural honeycombing on his CT from 07/31/16 may have been related to sheet rock and gypsum exposure in the past. This will require work- up once the current issue resolved (e.g. PFTs, new HRCT, additional history gathering). SAWMILL MANAGER, LIP, NSIP are also possibilities. RF (+), but CCP (-). ANCA, complement, and serologies for DM/PM all (-). IgG subsets OK, PCP negative. On steroids. * COPD - Hx of sig tob abuse, emphysema on CT chest from July 2016. On BD therapies, solumedrol. * Nutrition: On TFs @ goal. * Respiratory acidosis/Metabolic alkalosis: Good UOP last 3 days. BUN remains somewhat elevated, will follow. * Prophylaxis - On enoxaparin, GI - none indicated: on gastric TFs Plan: Follow CXR, ABG. Continue ventilatory support, supportive care, antibiotics, steroids, diuresis, TFs. We do need to obtain tissue diagnosis prior to proceeding with a tracheostomy and a PEG. Lung biopsy will be repeated tomorrow either with bronchoscopy/fluoroscopy or percutaneous biopsy. We could consider a surgical biopsy as well for definitive diagnosis. I will discuss this with others in the a.m.. 45 minutes CC time spent directly with patient, Discussed with the patient's brother and medical power of energy attorney, Nursing, RT, pathology, and the ICU MD Team. Subjective: Remains sedated, on the ventilator. Arouses weakly and responds. Still on 70- 80% FiO2.. Objective: Vital Signs Temp Pulse Resp BP Pulse Ox 37.4 C 106 H 22 H 128/70 H 92 05/22/17 06:00 05/22/17 18:00 05/22/17 18:00 05/22/17 18:00 05/22/17 18:00 Microbiology 05/17/17 14:49 Gram Stain - Final Lung Bilateral - Bronchial Washings 05/17/17 14:50 Mycobacterial Smear (KEYA) - Final Lung Bilateral - Bronchial Washings Laboratory Results 05/22/17 06:05 05/22/17 06:05 05/21/17 05/22/17 05/23/17 05:59 05:59 05:59 Intake Total 3222 4641 1942 Output Total 5625 2300 1150 Balance -2403 2341 792 Laboratory Tests 05/22/17 05/22/17 06:05 06:12 pCO2 54 H pO2 85 H ABG pH 7.35 ABG O2 Saturation 96 H Total O2 Concentration 80.0 Tidal Volume 520 PEEP 10 Calcium 8.5 Bronchoscopy specimens: Pathology negative for malignancy however there is no indication that I necessarily got into 1 of his lesions. Malignancy still quite possible. Cytologies pending. Bacterial cultures negative so far, has persistent Chela, not necessarily a pathogen. Physical Exam - Physical Exam General Appearance: thin, other (Sedated, overall unchanged) EENT: PERRL/EOMI, ET tube, other (NG to) Neck: normal inspection (no JVD) Respiratory: decreased breath sounds (Coarse breath sounds bilaterally, decreased at the bases), rales (At lateral bases), No rhonchi Cardiac/Chest: regular rate, rhythm (Tachycardic at times), systolic murmur ( Soft systolic murmur present) Abdomen: non-tender, soft, other (No BM), No normal bowel sounds (Present, decreased) Male Genitalia: other (Arias catheter in place. Input greater than output last 24 hr secondary to increased IV fluids for lower blood pressures.) Skin: normal color, warm/dry Extremities: No pedal edema Neuro/Psych: no motor/sensory deficits (Moves extremities), cognition abnormalities (Cannot assess) ICD10 Worksheet Patient Problems: Problems Problem Status Onset Pneumothorax Acute Hemoptysis Acute Severe sepsis Acute Pneumonia Acute
[2017-05-22] MEDS: 1/2 NS 1,000 ML IV SCH (22:55)
[2017-05-22] MEDS: ACETAMINOPHEN 650 MG/20.3 ML UDCUP TUBE PRN (22:56)
[2017-05-23] MEDS: IPRATROPIUM HFA INHALER IH SCH ×6 (00:07→20:54)
[2017-05-23] MEDS: ALBUTEROL 200 PUFFS/18 GM MDI IH SCH ×6 (00:07→20:53)
[2017-05-23] MEDS: CHLORHEXIDINE GLUCONATE 15 ML UDL PO SCH ×5 (02:00→19:28)
[2017-05-23] MEDS: PROPOFOL/EMULSION 100 ML IV SCH ×5 (02:32→19:26)
[2017-05-23] MEDS: guaiFENesin 200 MG/10 ML UDL TUBE SCH (06:15)
[2017-05-23] MEDS: fentaNYL/NACL 100 ML IV SCH ×2 (06:40→15:01)
[2017-05-23 06:49] LABS: PLATELET COUNT 258 10^3/uL (150-400)
[2017-05-23] MEDS: SENNOSIDES 17.6 MG/10 ML UDL - IF LIQUID ORDERED TUBE SCH (08:12)
[2017-05-23] MEDS: methylPREDNISolone SOD SUCC 125 MG/2 ML VIAL IVP SCH (08:12)
[2017-05-23] MEDS: ENOXAPARIN 40 MG/0.4 ML SYR SC SCH (08:12)
[2017-05-23] MEDS: ASPIRIN 325 MG TAB TUBE SCH (08:12)
[2017-05-23] MEDS: LACTULOSE 20 GM/30 ML UDCUP TUBE PRN (08:13)
[2017-05-23] MEDS: PETROLAT,WHT/MIN OIL/SOD CHL 3.5 GM OPHT.OINT EACHEYE PRN ×2 (08:13→13:16)
[2017-05-23] MEDS: MAGNESIUM HYDROXIDE 30 ML UDCUP TUBE PRN (08:13)
[2017-05-23] MEDS: FLUCONAZOLE/NaCl 100 ML IV SCH (08:19)
[2017-05-23] MEDS: ORAL BALANCE GEL TUBE PO PRN (08:37)
[2017-05-23 11:53] LABS: INR 1.09 (0.83-1.16); PROTIME(PATIENT) 14.3 SEC (12.0-15.0)
[2017-05-23] MEDS ORDERED: LIDOCAINE 1% 300 MG/30 ML SDV ONE (11:58)
--- NOTE | 2017-05-23 12:33 | ASMTCMCOM ---
CM Note CM Note Notes: Spoke with patient's brother Jeancarlos today who states he wants to talk to Dr. Russell. Let Dr. Russell know the request. Jeancarlos doesn't think he needs a family meeting today but will let us know if this changes. Jeancarlos states patient has parents and 2 sisters who would like to be here. The sister in [place] is taking care of the parents who are frail but still living in their own home. The other sister is in [place], [place] and Jeancarlos updates her daily. Jeancarlos was appreciative of all the support he is getting here. CM will follow. Date Signed: 05/23/2017 12:33 PM Electronically Signed By:Taisha Stauffer LCSW
--- NOTE | 2017-05-23 12:35 | HOSPPROG ---
Hospitalist Progress Note Assessment/Plan: 61 y/o male new to my care 05/20/17 with: Acute hypoxemic respiratory failure 2/2 severe B/L Pneumonia (still on vent) CT done 05/21 is concerning for metastatic lung ca for septic emboli versus other -Cont Levaquin ([facility] today 05/21/17) -bronchoscopy done 05/21 did not reveal meaningful pathology results. Will plan for an image guided biopsy possibly tomorrow -further w/u for infectious / autoimmune etiologies per ID -cont IV solumedrol -may require trach mild hypernatremia unchanged from yesterday -increase 1/2 NS 125 cc/hr -repeat chem in am Severe sepsis due to pneumonia with leukocytosis, tachypnea, tachycardia and elevated lactate -management as above ARDS -vent with lung protective strategy Volume overload - status post diuresis Underlying ILD with honeycombing - may be due to sheet rock/gypsum exposure -further w/u with high res CT planned -rheumatoid factor + -consider lung biopsy Hypertension - likely related to volume overload, much improved today -prn IV hydralazine + diuresis Troponin elevation - suspect strain due to sepsis rather than primary cardiac event -ischemic eval when more stable Tobacco dependence Etoh abuse - no evidence for withdrawal FEN - tube feeds DVT PPLX - Lovenox Full code Dispo - cont inpt / ICU, discussed with Dr. Russell, multi-disciplinary team, may need trach after if unable to wean from vent after 14 days trail sedation vacations. Further plan is dependent upon biopsy results. If his respiratory failure is result of widely metastatic lung cancer than palliative care would likely be the most appropriate option Subjective: Intubated and sedated Objective: Vital Signs Temp Pulse Resp BP Pulse Ox 36.7 C 101 H 24 H 154/89 H 93 05/23/17 12:00 05/23/17 12:00 05/23/17 12:00 05/23/17 12:00 05/23/17 12:00 Microbiology 05/17/17 14:50 Mycobacterial Smear (KEYA) - Final Lung Bilateral - Bronchial Washings 05/21/17 15:45 Gram Stain - Final Lung Bilateral - Bronchial Washings 05/17/17 14:49 Gram Stain - Final Lung Bilateral - Bronchial Washings Bronchial Washings Culture - Final Chela Albicans Laboratory Results 05/23/17 06:25 05/23/17 06:25 05/22/17 05/23/17 05/24/17 05:59 05:59 05:59 Intake Total 4641 3997 Output Total 2300 2150 Balance 2341 1847 PT 14.3 SEC (12.0-15.0) 05/23/17 11:34 INR 1.09 (0.83-1.16) 05/23/17 11:34 - Physical Exam Constitutional: no apparent distress, appears nourished, not in pain Ears, Nose, Mouth, Throat: other (ET tube in place) Cardiovascular: regular rate and rhythym, no murmur, rub, or gallop Respiratory: no respiratory distress, no rales or rhonchi, clear to auscultation Gastrointestinal: normoactive bowel sounds, soft, non-tender abdomen, no palpable masses, No guarding, No rebound Genitourinary: sherman in urethra ICD10 Worksheet Patient Problems: Problems Problem Status Onset Pneumothorax Acute Hemoptysis Acute Severe sepsis Acute Pneumonia Acute
[2017-05-23] MEDS: 1/2 NS 1,000 ML IV SCH (13:15)
--- NOTE | 2017-05-23 13:52 | PDINTPN ---
Epic Manager Progress Note Assessment/Plan: Assessment: 61 M without much PMH admitted 05/10/17 with SOB, cough after failing outpatient abx and found to have severe CAP with hypoxia. He was treated with Zosyn and Vanco, with the addition of steroids the next day. He was initially treated with bipap, then changed to vapotherm, but his O2 needs continued to worsen and he required urgent intubation on 05/12/17. His BP has been acceptable but marginal, but his renal function has been fine. He also had a spontaneous pneumothorax in spring, and a chest CT showed evidence of early ILD with honeycombing- but no further workup was initiated at that time. * Acute respiratory failure with hypoxia and ARDS 2/2 CAP. Infiltrates progressed despite Vanco/Zosyn and steroids. Changed to Levo/Vanco 05/16/17. On levofloxacin alone now. On lung protective strategy with TV 6 ml/kg IBW and high RR. Sedation adequate on propofol and fentanyl, with PRN Ativan. Sedation vacation on a daily basis is indicated. * CAP- Currently no organisms identified, Chela on bronch wash. Procalcitonin low for bacterial infection. Steroids added 2/2 severity of disease. Legionella , RSV, Strep negative. WBC increased, ? steroids. * Multiple lung nodules/masses. CT scan suggests malignancy. Biopsies 05/21 were negative. Percutaneous biopsies obtained today. Appreciate interventional radiology support and procedure. Initial touch preps suggest non -small cell lung cancer. There were no obvious complications. Follow-up chest x-ray pending.. * ILD- Hx of subpleural honeycombing on his CT from 07/31/16 may have been related to sheet rock and gypsum exposure in the past. Academic at this point as he will not survive this hospitalization in light of his widespread malignancy. * COPD - Hx of sig tob abuse, emphysema on CT. On BD therapies, solumedrol. * Nutrition: On TFs @ goal. * Respiratory acidosis/Metabolic alkalosis: Stable. * Prophylaxis - On enoxaparin, GI - none indicated: on gastric TFs Plan: Follow CXR, ABG. Continue ventilatory support, supportive care, antibiotics, steroids, IVF, TFs. I will discuss the preliminary pathology with the patient's brother. I will be making recommendations regarding transitioning to comfort care. In light of his high FiO2 needs I would anticipate that he would pass away rapidly once taken off the ventilator.. 40 minutes CC time spent directly with patient, Discussed with the patient's brother and medical power of ip attorney initially, Nursing, RT, pathology, and the ICU MD Team. I will discuss the pathology further with his brother this afternoon when he returns. Addendum: I discussed the preliminary pathology report with the patient's brother at approximately 2:15 p.m.. He is going to get in touch with family members and friends this afternoon and make further decisions based on conversations with his family. He will likely want to go to comfort measures and not prolong the patient's suffering. I told him that survival was extremely unlikely, and that treatment for this metastatic cancer was not going to be an option in light of the present condition of the patient. Subjective: Sedated, on the ventilator. Unchanged. Somewhat uncomfortable appearing despite propofol and fentanyl. Objective: Vital Signs Temp Pulse Resp BP Pulse Ox 36.7 C 101 H 24 H 154/89 H 93 05/23/17 12:00 05/23/17 12:00 05/23/17 12:00 05/23/17 12:00 05/23/17 12:00 Microbiology 05/21/17 15:45 Gram Stain - Final Lung Bilateral - Bronchial Washings 05/21/17 15:45 Mycobacterial Smear (KEYA) - Final Lung Bilateral - Bronchial Washings 05/17/17 14:50 Mycobacterial Smear (KEYA) - Final Lung Bilateral - Bronchial Washings 05/17/17 14:49 Gram Stain - Final Lung Bilateral - Bronchial Washings Bronchial Washings Culture - Final Chela Albicans Laboratory Results 05/23/17 06:25 05/23/17 06:25 05/22/17 05/23/17 05/24/17 05:59 05:59 05:59 Intake Total 4641 3997 450 Output Total 2300 2150 Balance 2341 1847 450 PT 14.3 SEC (12.0-15.0) 05/23/17 11:34 INR 1.09 (0.83-1.16) 05/23/17 11:34 CXR: No significant changes in bilateral infiltrates. Lines and tubes in good position Physical Exam - Physical Exam General Appearance: mild distress, thin, other (Unchanged overall) EENT: PERRL/EOMI, ET tube, other (NG tube in place) Neck: normal inspection (Without obvious jugular venous distension) Respiratory: decreased breath sounds, rales (At bases), wheezing (Minimal), prolonged expiration Cardiac/Chest: regular rate, rhythm Abdomen: normal bowel sounds, non-tender, soft, other (Tolerating tube feeding) Male Genitalia: other (Arias catheter in place. Input greater than output last 2 days) Skin: warm/dry, pallor Extremities: No pedal edema Neuro/Psych: no motor/sensory deficits (Moves extremities weakly), cognition abnormalities (Cannot assess) ICD10 Worksheet Patient Problems: Problems Problem Status Onset Hemoptysis Acute Pneumonia Acute Pneumothorax Acute Severe sepsis Acute
--- NOTE | 2017-05-23 13:59 | PDRADPN ---
Radiology Procedure Note Date of Procedure: 05/23/17 Radiologist: Serjio Marrero Anesthesia: IV Sedation Pre-op Diagnosis: Multiple pulmonary masses, suspicious of cancer Post-op Diagnosis: Same Indication: Respiratory failure, intubation Procedure: US guided core needle biopsy of left pulmonary mass Finding(s): Multiple tissue samples are obtained. Inf/Abcess present in the surg proc area at time of surgery?: No Complications: Portable CXR pending. Specimen(s): Touch prep reported by pathologist to be adequate sample. 18 gauge Cores in formalin for histology and saline for culture.
[2017-05-23 15:03] LABS: HANTAVIRUS IGG <2.00; HANTAVIRUS IGM <2.00
[2017-05-23] MEDS: ACETAMINOPHEN 650 MG/20.3 ML UDCUP TUBE PRN (16:48)
[2017-05-23 19:31] VITALS: RESP 27; O2SAT 90
[2017-05-23] MEDS ORDERED: GLYCOPYRROLATE 0.2 MG/1 ML VIAL IVP PRN (20:19)
[2017-05-23] MEDS: LORazepam 2 MG/ML INJ IVP PRN ×2 (20:22→20:30)
[2017-05-23 22:30] VITALS: BP 66/34; PULSE 64; TEMP 98.6
== END 2017-05-23 22:31 | disposition expired | DRG 853 ==
LOC: F2N 20:35 → UNDODISIN 05-24 00:17
PROVIDERS: ADMIT Internal Medicine; ATTEND Internal Medicine
PROC: 02HV33Z Insertion of Infusion Device into Superior Vena Cava, Percutaneous Approach (ICD-10-PCS; 2017-05-13)
PROC: 0BBL3ZX Excision of Left Lung, Percutaneous Approach, Diagnostic (ICD-10-PCS; 2017-05-13)
PROC: 5A1955Z Respiratory Ventilation, Greater than 96 Consecutive Hours (ICD-10-PCS; 2017-05-14)
PROC: 0BCM8ZZ Extirpation of Matter from Bilateral Lungs, Via Natural or Artificial Opening Endoscopic (ICD-10-PCS; principal; 2017-05-20)
PROC: 0B958ZX Drainage of Right Middle Lobe Bronchus, Via Natural or Artificial Opening Endoscopic, Diagnostic (ICD-10-PCS; principal; 2017-05-20)
PROC: 0BB68ZX Excision of Right Lower Lobe Bronchus, Via Natural or Artificial Opening Endoscopic, Diagnostic (ICD-10-PCS; 2017-05-21)
PROC: 0B9M8ZX Drainage of Bilateral Lungs, Via Natural or Artificial Opening Endoscopic, Diagnostic (ICD-10-PCS; 2017-05-21)
PROC: 0B958ZX Drainage of Right Middle Lobe Bronchus, Via Natural or Artificial Opening Endoscopic, Diagnostic (ICD-10-PCS; 2017-05-21)
PROC: 0B998ZX Drainage of Lingula Bronchus, Via Natural or Artificial Opening Endoscopic, Diagnostic (ICD-10-PCS; 2017-05-21)
PROC: 0B968ZX Drainage of Right Lower Lobe Bronchus, Via Natural or Artificial Opening Endoscopic, Diagnostic (ICD-10-PCS; 2017-05-21)
PROC: 0BH17EZ Insertion of Endotracheal Airway into Trachea, Via Natural or Artificial Opening (ICD-10-PCS; 2017-05-21)
DX: A41.9 Sepsis, unspecified organism (principal); R65.20 Severe sepsis without septic shock; C34.92 Malignant neoplasm of unspecified part of left bronchus or lung; J96.01 Acute respiratory failure with hypoxia; J18.9 Pneumonia, unspecified organism; J80 Acute respiratory distress syndrome; J81.0 Acute pulmonary edema; R79.89 Other specified abnormal findings of blood chemistry; E87.2 Acidosis; E87.70 Fluid overload, unspecified; B37.9 Candidiasis, unspecified; J90 Pleural effusion, not elsewhere classified; J84.9 Interstitial pulmonary disease, unspecified; J44.9 Chronic obstructive pulmonary disease, unspecified; I10 Essential (primary) hypertension; Z82.49 Family history of ischemic heart disease and other diseases of the circulatory system
CPT/HCPCS: 82787-90; 82947-QW; 83516-90; 83520-90; 86162-90; 86235-90; 86635-90; 86668-90; 86790-90; 87070-90; 87449-90; C1751; J0171; J0360; J0456; J1120; J1450; J1650; J1940; J1956; J2060; J2250; J2543; J2704; J2930; J2997; J3010; J3370; P9012; P9016; P9017; P9041; Q9967